=== PATIENT | female | born 1960 | race Caucasian/White ===

== ENCOUNTER → 2016-06-30 | Outpatient (CLI) | payer OTHER ==
[~2016-06-30] MED LIST: CYCL-376 PO; MELO7.5T6 PO; PRLSR20 PO; ROSU5TAB PO
[2016-06-30 15:56] LABS: LYME DISEASE AB IGG NEG (NEG); LYME DISEASE AB IGM NEG (NEG)
== END | disposition home or self-care (01) ==
LOC: C.LAB1850 12:37
PROVIDERS: ATTEND Internal Medicine
DX: Z11.59 Encounter for screening for other viral diseases (principal); G52.1 Disorders of glossopharyngeal nerve

== ENCOUNTER → 2016-08-05 | Outpatient (CLI) | payer OTHER ==
[2016-08-05 12:35] LABS: CHOLESTEROL/HDL RATIO 4.2
== END | disposition home or self-care (01) ==
LOC: C.LAB1850 11:00
PROVIDERS: ATTEND Internal Medicine
DX: E78.5 Hyperlipidemia, unspecified (principal); E55.9 Vitamin D deficiency, unspecified; E53.8 Deficiency of other specified B group vitamins

== ENCOUNTER → 2016-09-08 | Outpatient (CLI) | payer OTHER ==
--- NOTE | 2016-09-09 14:09 | MAMMOGRAPHY REPORT ---
BILATERAL DIGITAL SCREENING MAMMOGRAM TOMOSYNTHESIS WITH CAD: 09/08/2016 CLINICAL HISTORY: Routine screening. Patient has no complaints. TECHNIQUE: Breast tomosynthesis in addition to standard 2D mammography was performed. Current study was also evaluated with a Computer Aided Detection (CAD) system. COMPARISON: Comparison is made to exams dated: 09/05/2015 mammogram, 08/02/2014 mammogram, 06/20/2013 mammogram, 01/15/2012 mammogram, 01/01/2011 mammogram - [facility], and 08/14/2009 [facility]. BREAST COMPOSITION: There are scattered areas of fibroglandular density in both breasts. FINDINGS: There are stable postsurgical and post biopsy changes in the left breast, with a metallic marker remaining in place in the lateral aspect of the breast. No new suspicious mass, architectura l distortion or cluster of microcalcifications is seen. IMPRESSION: ACR BI-RADS CATEGORY 1: NEGATIVE There is no mammographic evidence of malignancy. A 1 year screening mammogram is recommended. The p atient will receive written notification of the results. Approximately 10% of breast cancers are not detected with mammography. A negative mammographic repor t should not delay biopsy if a clinically suggestive mass is present. Ekta Jeffries M.D. ay/:09/08/2016 17:05:06 Knitting Machine Operator: Sunni JIANG)(Nuha), [facility] letter sent: Normal 1/2 BI-RADS Code: ACR BI-RADS Category 1: Negative
== END | disposition home or self-care (01) ==
LOC: C.MAMM 13:21
PROVIDERS: ATTEND Obstetrics & Gynecology
DX: Z12.31 Encounter for screening mammogram for malignant neoplasm of breast (principal)

== ENCOUNTER → 2016-11-12 | Outpatient (CLI) | payer OTHER | END | disposition home or self-care (01) | LOC: C.PAPS 11:03 | PROVIDERS: ATTEND Obstetrics & Gynecology | DX: Z12.4 Encounter for screening for malignant neoplasm of cervix (principal) ==

== ENCOUNTER → 2017-02-05 | Outpatient (CLI) | payer OTHER | END | disposition home or self-care (01) | LOC: C.LAB1850 11:21 | PROVIDERS: ATTEND Internal Medicine | DX: E55.9 Vitamin D deficiency, unspecified (principal); E53.8 Deficiency of other specified B group vitamins ==

== ENCOUNTER → 2017-05-06 | Outpatient (CLI) | payer OTHER ==
--- NOTE | 2017-05-06 14:10 | DIAGNOSTIC IMAGING REPORT ---
CHEST 2 VIEWS ROUTINE CLINICAL HISTORY: CHEST PAIN dyspnea COMPARISON STUDY: 06/20/2013 FINDINGS: The bones soft tissues and hemidiaphragms are normal. The cardiomediastinal silhouette is normal. The lungs are clear. The pulmonary vasculature is normal. IMPRESSION: Negative chest. The above report was generated using voice recognition software. It may contain grammatical, syntax or spelling errors. Electronically signed by: Rao Smith M.D. 05/06/2017 2:09 PM Dictated Date/Time: 05/06/2017 2:08 PM
[2017-05-06 14:40] LABS: HEMATOCRIT 38.5 % (37-47); HEMOGLOBIN 12.7 g/dL (12.0-16.0); MEAN CELL VOLUME 97.7 fL (80-100); MEAN CORPUSCULAR HEMOGLOBIN 32.2 pg (25-34); MEAN PLATELET VOLUME 10.6 fL (7.4-10.4); PLATELET COUNT 264 K/uL (130-400); RED CELL DISTRIBUTION WIDTH CV 13.5 % (11.5-14.5); RED CELL DISTRIBUTION WIDTH SD 48.6 fL (36.4-46.3); WHITE BLOOD COUNT 6.83 K/uL (4.8-10.8)
== END | disposition home or self-care (01) ==
LOC: C.RAD1850 13:36
PROVIDERS: ATTEND Internal Medicine
DX: R07.9 Chest pain, unspecified (principal); D64.9 Anemia, unspecified; E53.8 Deficiency of other specified B group vitamins

== ENCOUNTER → 2017-12-02 | Outpatient (CLI) | payer OTHER ==
--- NOTE | 2017-12-02 11:10 | DIAGNOSTIC IMAGING REPORT ---
THORACIC SPINE 3 VIEWS CLINICAL HISTORY: Thoracic back pain. FINDINGS: AP, lateral, and swimmer's views of the thoracic spine are correlated with lateral chest x-ray dated 05/06/2017. The skeletal structures are osteopenic. There is no radiographic evidence of fracture or malalignment. Vertebral body height and alignment are maintained throughout the thoracic spine. Small anterior osteophytes are seen throughout. The transverse processes and pedicles are intact as seen on the frontal view. Mild multilevel degenerative disc space narrowing is noted with associated degenerative endplate sclerosis. The visualized lung parenchyma appears clear. Cholecystectomy clips are noted in the right upper quadrant. Calcified splenic artery aneurysms are seen in the left upper quadrant. IMPRESSION: 1. No acute bony abnormality is seen in the thoracic spine. 2. Osteopenia and mild spondylotic change as above.. Electronically signed by: Norm Mcclure M.D. 12/02/2017 11:09 AM Dictated Date/Time: 12/02/2017 11:07 AM
== END | disposition home or self-care (01) ==
LOC: C.RAD1850 10:27
PROVIDERS: ATTEND Internal Medicine
DX: M54.6 Pain in thoracic spine (principal); M85.88 Other specified disorders of bone density and structure, other site

== ENCOUNTER 2025-01-25 14:17 | Inpatient (IN) ==
--- NOTE | 2025-01-25 15:14 | Emergency Department Note ---
ED Visit Note I was consulted by the Advanced Practice Provider. I personally made/approved the management plan and take responsibility for the patient management. I performed a substantive portion of the visit. This includes the aspects of: Patient presents with an outpatient MRI showing osteomyelitis of the foot with intramuscular abscesses. Given the findings, given the ongoing pain and discomfort, the patient requires a hospital stay, IV antibiotic therapy and orthopedic/podiatric consult. The hospitalist was consulted. .
[2025-01-25] MEDS ORDERED: CEFEPIME 2000MG 2,000 MG/20 ML SYR IV SCH (15:15)
[2025-01-25] MEDS ORDERED: VANCOMYCIN CONSULT ACTIVE PRN (15:19)
[2025-01-25 15:57] LABS: Hematocrit (blood only) 40.0 % (37.0-47.0); Hemoglobin 13.5 g/dl (12.0-16.0); Immature Granulocytes # (auto) 0.25 K/uL (0.01-0.20); Immature Granulocytes % (auto) 1.6 %; Mean Corpuscular Hemoglobin 32.4 pg (25.0-34.0); Mean Corpuscular Volume 95.9 fL (80.0-100.0); Platelet Count 421 K/uL (130-400); RDW Standard Deviation 44.9 fL (36.4-46.3); Red Blood Count 4.17 M/uL (4.20-5.40); White Blood Count 15.36 K/ul (4.8-10.8)
[2025-01-25] MEDS: cefTRIAXone SODIUM 2,000 MG/50 ML BAG IV STA (16:10)
[2025-01-25 16:14] LABS: Alanine Aminotransferase 19 U/L (7-52); Albumin Globulin Ratio 1.1 (0.9-2); Albumin Level 4.2 gm/dl (3.4-5.0); Alkaline Phosphatase 114 U/L (34-104); Anion Gap 10 (3-11); Bilirubin,Total 0.4 mg/dl (0.2-1.0); Blood Urea Nitrogen 15 mg/dl (6-23); Calcium 9.7 mg/dl (8.6-10.3); Carbon Dioxide 28 mmol/L (21-32); Chloride 100 mmol/L (98-107); Creatinine Clr Calc Pharmacy 77.9 ml/min; Globulin 3.7 gm/dl (2.5-4.0); Glucose 115 mg/dl (70-99(Fasting)); Potassium 3.9 mmol/L (3.5-5.1); Sodium 138 mmol/L (136-145); Total Protein 7.9 gm/dl (6.0-8.3)
[2025-01-25] MEDS: VANCOMYCIN HCL 1,750 MG in SODIUM CHLORIDE 0.9% 500 ML IV ONE (16:43)
--- NOTE | 2025-01-25 16:52 | Emergency Department Note ---
ED Provider Note History of Present Illness Chief Complaint: Foot Injury/Pain Stated Complaint: L FOOT INJURY Time Seen by Provider: 01/25/25 14:38 Source: patient and family Mode of arrival: ambulatory Limitations: no limitations Patient is a 64-year-old female who presents to the emergency department with complaints of left foot pain. Patient was seen here approximately 2 weeks ago for left foot pain and had negative ultrasound and x-rays. Patient was treated for cellulitis due to the redness, swelling and pain that she was experiencing. Patient finished her course of Keflex and was not having much relief of her symptoms and followed up with her primary care physician who has given her 2 different rounds of steroids with minimal relief of her symptoms. Patient then had an outpatient MRI completed that was interpreted to show multiple intramuscular abscesses and osteomyelitis at the first metacarpal. Patient was sent in for further evaluation and admission by her primary care physician. Home Medications Medication Instructions Recorded Confirmed Type cyclobenzaprine 10 mg tablet 5 - 10 mg PO UD PRN muscle spasms 08/27/23 01/25/25 History mecobalamin (vitamin B12) See Rx Instructions .Route .COMPLEX 09/13/23 01/25/25 History celecoxib 200 mg capsule (Celebrex) 200 mg PO DAILY PRN pain #30 caps 08/07/24 01/25/25 Rx lorazepam 0.5 mg tablet 0.5 mg PO DAILY PRN anxiety #30 10/02/24 01/25/25 Rx tabs mupirocin 2 % topical ointment 1 applic topical BID PRN dryness 10/02/24 01/25/25 Rx in nose, mainly in winter #22 grams cholecalciferol (vitamin D3) 1,250 50,000 unit PO WK #12 caps 10/04/24 01/25/25 Rx mcg (50,000 unit) capsule cholecalciferol (vitamin D3) 25 75 mcg PO QPM 12/01/24 01/25/25 History mcg (1,000 unit) tablet (Vitamin D3) oxycodone 5 mg tablet 5 mg PO Q8H PRN pain #15 tabs 01/16/25 01/25/25 Rx prednisone 10 mg tablet See Rx Instructions .Route 01/23/25 01/25/25 Rx .COMPLEX #30 tabs Allergies Allergy/AdvReac Type Severity Reaction Status Date / Time gabapentin [From Neurontin] Allergy Intermediate Rash Verified 01/17/25 13:05 atorvastatin AdvReac Severe leg Verified 01/17/25 13:05 crampings chlorhexidine AdvReac Severe Rash Verified 01/17/25 13:05 codeine AdvReac Mild NAUSEA Verified 01/17/25 13:05 amoxicillin AdvReac Unknown NAUSEA/DIAR Verified 01/17/25 13:05 NAYANA clavulanic acid AdvReac Unknown NAUSEA/DIAR Verified 01/17/25 13:05 NAYANA Past Med/Surg History Problem List (Updated 01/27/25 @ 16:01 by EVERARDO Guerrero) Osteomyelitis (Acute) Elevated lactic acid level Foot osteomyelitis, left Gout Swelling of left foot Left foot pain Acute joint pain Swelling (Acute) Acute foot pain (Acute) Cellulitis (Acute) LLQ pain Colitis Left shoulder pain Metallic taste At increased risk of breast cancer TC score 43% lifetime risk Leg cramps Skin lesions Health care maintenance Cervical stenosis (uterine cervix) Right knee pain still has pain 2/2 to "bad" knee replacement Family history of breast cancer in first degree relative Daughter age 37 Pt TC score <20% lifetime risk Hyperglycemia Splenic artery aneurysm FH: CAD (coronary artery disease) Mild dysplasia of cervix (DANNY I) Anxiety (Acute) Arthralgia of multiple sites (Acute) Glossopharyngeal neuralgia (Acute) Hyperlipidemia (Acute) Internal hemorrhoids (Acute) Liver hemangioma (Acute) Nasal septal perforation (Acute) Vitamin B12 deficiency (Acute) Vitamin D deficiency disease (Acute) Medical History ASCUS of cervix with negative high risk HPV hx Thoracic spine pain "occasional" Coronary artery calcification seen on CT scan Right knee pain still has pain 2/2 to "bad" knee replacement Nasal septal perforation Splenic artery aneurysm x3, being monitored Per 08/19/23 abdomen/pelvis CT- ". 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 History of tonsillectomy History of corneal transplant Left eye, s/t accident History of cholecystectomy History of arthroscopy LT KNEE Family History Mother , at 92 years of age from Alzheimer's dementia; patient's mother also was diagnosed with cervical carcinoma and lung carcinoma earlier in her life with underlying tobacco abuse, but the proximal cause of patient's mother's was Alzheimer's dementia at 92 years of age. Alzheimer disease Cervical cancer Lung cancer ASCVD (arteriosclerotic cardiovascular disease) Father , at 58 years of age from esophageal carcinoma in the setting of tobacco abuse, but no COPD, and not on home oxygen or home steroids. Esophageal cancer Daughter Asthma Breast cancer Brother Heart disease ASCVD (arteriosclerotic cardiovascular disease) Sister Heart disease Social History Smoking Status: Never smoker Second Hand Exposure: Yes (hx- smoked 40 years ago); Do You Dip or Chew Tobacco: No; Hx Alcohol Use: No Hx Substance Use: No Preferred Language: Honduran Communication Ability: Effective Visual Impairment: Partially Limited Or Rn Required: No Beliefs That Will Affect Care: None marital status: marital status details: Visits and helps raise grandchildren of her 6 daughters and 4 sons. Current Living Situation: Spouse Current Living Situation Comment: Lives with in their own home. 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 How many Children do You have: 9 Feels Safe at Home: Yes Childhood Exposure to Second-Hand Smoke: Yes Dental Care, Regularly: Yes Physical Activity Frequency: 3-4 Times per Week Seatbelt Use: always Sunscreen Use: Yes Assistive Devices: Walker Physical Exam Vital Signs Vital Signs - 24 hr 01/25/25 14:30 01/25/25 16:20 10/16/25 16:24 Temperature 36.6 C Temperature Source Oral Pulse Rate 80 80 Pulse Rate [Apical] 82 Pulse Rhythm [Apical] Regular Pulse Strength [Apical] Normal Respiratory Rate 16 23 Respiratory Effort / Characteristics Non-Labored Spontaneous Respiratory Depth Normal Respiratory Pattern Regular Blood Pressure 142/90 H Blood Pressure [Right Arm] 117/84 Blood Pressure Mean 107 Blood Pressure Mean [Right Arm] 95 Blood Pressure Position [Right Arm] Lying Pulse Oximetry 96 95 Oxygen Delivery Method Room Air Room Air Sepsis Recent Fever Within 48 Hours No Sepsis New/Unexplained Change in Mental Status No Sepsis Action Taken by Nursing No Action Required Physical Exam: VITAL SIGNS - Vital signs and nursing notes were reviewed. GENERAL -64-year-old female appearing her stated age and in noticeable discomfort throughout the exam. Patient's is at bedside. MUSCULOSKELETAL -patient's left foot presents with some mild erythema, mild edema no evidence of ecchymosis. Patient has moderate discomfort around the area of the first metacarpal. Patient is unable to bear weight due to the significant pain that she is experiencing with weightbearing. NEUROLOGIC/VASCULAR - Neurovascularly intact distally with +3/5 dorsalis pedis pulses palpated bilaterally. Intact sensation to light and sharp touch appreciated distally. Course Administered Medications Acetaminophen (Acetaminophen 325 Mg Tab) 650 mg PO Q6 PRN PRN Reason: pain 1 to 3;MCKEON;T>100.4F Stop: 02/24/25 16:58 Last Admin: 01/26/25 05:58 Dose: 650 mg Documented By: HERMAN Heparin Sodium (Porcine) (Heparin Sod 5,000 Unit/0.5 Ml Vial) 5,000 units SQ Q8 ALEXANDER Stop: 02/24/25 21:59 Last Admin: 01/27/25 13:16 Dose: Not Given Documented By: Admin: 01/27/25 05:56 Dose: Not Given Documented By: cydney Admin: 01/26/25 21:33 Dose: Not Given Documented By: cydney Admin: 01/26/25 14:02 Dose: Not Given Documented By: Admin: 01/26/25 05:45 Dose: 5,000 units Documented By: Admin: 01/25/25 22:16 Dose: 5,000 units Documented By: HERMAN Cefepime HCl (Maxipime 2000mg) 2,000 mg in 20 mls @ 5 mls/min IV Q8H [facility]; Protocol Stop: 03/09/25 01:59 Last Admin: 01/27/25 11:00 Dose: 5 mls/min Documented By: Admin: 01/27/25 01:38 Dose: 5 mls/min Documented By: cydney Admin: 01/26/25 18:50 Dose: 5 mls/min Documented By: Admin: 01/26/25 09:56 Dose: 5 mls/min Documented By: LA NENA Admin: 01/26/25 01:57 Dose: 5 mls/min Documented By: HERMAN Vancomycin HCl 1,250 mg/ (Sodium Chloride) 275 mls @ 200 mls/hr IV Q12H [facility] Stop: 03/08/25 15:59 Last Infusion: 01/27/25 05:35 Dose: Infused Documented By: cydney Admin: 01/27/25 04:09 Dose: 200 mls/hr Documented By: cydney Infusion: 01/26/25 17:43 Dose: Infused Documented By: Admin: 01/26/25 16:09 Dose: 200 mls/hr Documented By: GABRIELLE Morphine Sulfate (Morphine Sulfate 4 Mg/Ml 1 Ml Carp\\Vial) 2 mg IV Q2H PRN PRN Reason: Pain rated 4 to 10 Stop: 02/08/25 17:09 Last Admin: 01/26/25 21:38 Dose: 2 mg Documented By: cydney Discontinued Medications Gadobutrol (Gadobutrol 65ml Vial) 7 ml IV ONCE ONE Stop: 01/25/25 21:01 Last Admin: 01/25/25 21:00 Dose: 7 ml Documented By: YARA Vancomycin HCl 1,750 mg/ (Sodium Chloride) 535 mls @ 200 mls/hr IV NOW ONE Stop: 01/25/25 17:59 Last Infusion: 01/25/25 19:24 Dose: Infused Documented By: Admin: 01/25/25 16:43 Dose: 200 mls/hr Documented By: VINI Ceftriaxone Sodium (Rocephin) 2,000 mg in 50 mls @ 100 mls/hr IV NOW STA Stop: 01/25/25 15:48 Last Infusion: 01/25/25 16:40 Dose: Infused Documented By: Admin: 01/25/25 16:10 Dose: 100 mls/hr Documented By: VINI Cefepime HCl (Maxipime 2000mg) 2,000 mg in 20 mls @ 5 mls/min IV TODAY@1715 ALEXANDER; Protocol Stop: 01/25/25 18:30 Last Admin: 01/25/25 18:03 Dose: 5 mls/min Documented By: VINI Vancomycin HCl (Vancomycin Hcl / Nss) 1,000 mg in 270 mls @ 200 mls/hr IV Q12H [facility]ER Stop: 03/09/25 03:59 Last Infusion: 01/26/25 05:35 Dose: Infused Documented By: Admin: 01/26/25 04:10 Dose: 200 mls/hr Documented By: HERMAN Sodium Chloride (Nss) 1,000 mls @ 72 mls/hr IV .[id number] ONE Stop: 01/26/25 10:11 Last Infusion: 01/26/25 12:08 Dose: Infused Documented By: LA NENA Admin: 01/25/25 22:10 Dose: 72 mls/hr Documented By: HERMAN Medical Decision Making Differential Diagnosis Fracture, dislocation, cellulitis, osteomyelitis, among others Medical Records Attestation: I reviewed the patient's medical records. Home Medications was personally reviewed by me Laboratory Data Attestation: I reviewed the patient's lab results. 01/27/25 06:57 01/27/25 06:57 Lab Results 01/25/25 01/25/25 Range/Units 15:34 16:06 WBC 15.36 H (4.8-10.8) K/ul RBC 4.17 L (4.20-5.40) M/uL Hgb 13.5 (12.0-16.0) g/dl Hct 40.0 (37.0-47.0) % MCV 95.9 (80.0-100.0) fL MCH 32.4 (25.0-34.0) pg MCHC 33.8 (32.0-36.0) g/dL RDW Std Deviation 44.9 (36.4-46.3) fL RDW Coeff of Patel 12.7 (11.5-14.5) % Plt Count 421 H (130-400) K/uL MPV 9.6 (9.4-12.4) fL Immature Gran % (Auto) 1.6 % Neut % (Auto) 86.8 % Lymph % (Auto) 8.6 % Aiken % (Auto) 2.4 % Eos % (Auto) 0.1 % Baso % (Auto) 0.5 % Neut # (Auto) 13.33 H (1.40-6.50) K/uL Lymph # (Auto) 1.32 (1.20-3.40) K/uL Aiken # (Auto) 0.37 (0.11-0.59) K/uL Eos # (Auto) 0.02 (0.00-0.50) K/uL Baso # (Auto) 0.07 (0.00-0.20) K/uL Immature Gran # (Auto) 0.25 H (0.01-0.20) K/uL ESR 44 H (0-30) mm/hr Sodium 138 (136-145) mmol/L Potassium 3.9 (3.5-5.1) mmol/L Chloride 100 (98-107) mmol/L Carbon Dioxide 28 (21-32) mmol/L Anion Gap 10 (3-11) BUN 15 (6-23) mg/dl Creatinine 0.70 (0.6-1.2) mg/dl Est Cr Clr Drug Dosing 77.9 ml/min eGFR 95.92 BUN/Creatinine Ratio 21.4 H (10-20) Glucose 115 H (70-99(Fasting)) mg/dl Lactate 1.6 (0.4-2.0) mmol/L Calcium 9.7 (8.6-10.3) mg/dl Total Bilirubin 0.4 (0.2-1.0) mg/dl AST 14 (13-39) U/L ALT 19 (7-52) U/L Alkaline Phosphatase 114 H (34-104) U/L C-Reactive Protein < 0.50 (0-0.5) mg/dl Total Protein 7.9 (6.0-8.3) gm/dl Albumin 4.2 (3.4-5.0) gm/dl Globulin 3.7 (2.5-4.0) gm/dl Albumin/Globulin Ratio 1.1 (0.9-2) Procalcitonin < 0.02 (0-0.5) ng/ml MDM Narrative Patient is a 64-year-old female who presents to the emergency department with complaints of left foot pain. Patient was seen here approximately 2 weeks ago for left foot pain and had negative ultrasound and x-rays. Patient was treated for cellulitis due to the redness, swelling and pain that she was experiencing. Patient finished her course of Keflex and was not having much relief of her symptoms and followed up with her primary care physician who has given her 2 different rounds of steroids with minimal relief of her symptoms. Patient then had an outpatient MRI completed that was interpreted to show multiple intramuscular abscesses and osteomyelitis at the first metacarpal. Patient was sent in for further evaluation and admission by her primary care physician. Patient was evaluated by myself and findings were noted in the physical exam above. Patient was ordered IV placement, lab work that included a CBC, CMP, sed rate, and lactate. Patient was also ordered blood cultures and IV Rocephin and vancomycin. Patient's lab work resulted with an elevated white blood cell count of 15.36. Patient had no significant electrolyte imbalance noted. Patient sed rate was elevated at 44. Patient did not have any further imaging here in the emergency department as her MRI did indicate the multiple abscesses and osteomyelitis. I discussed with the patient that because of the findings on the MRI and her lab work that it was the most reasonable and advisable plan moving forward to have her admitted to the hospital for IV antibiotics and further evaluation and management. Patient verbalized understanding and was agreeable to this plan. I spoke with one of the residents with the [facility] hospitalist group, Alexis Spain and gave him a full report on the patient's chief complaint, current status and the results of her imaging at 611 MRI. Alexis verbalized understanding and was agreeable to admitting the patient under Dr. Bessie Stanton's service. Please refer to the [facility] documentation for further evaluation and management of this patient. Impression Osteomyelitis Discharge Plan Visit Data Chief Complaint: Foot Injury/Pain Stated Complaint: L FOOT INJURY ED Provider: Norm Moreno ED Midlevel Provider: Kirsty Ayala Discharge Problem: Osteomyelitis Patient Disposition: Admitted As Inpatient Condition: Fair Discharge Instructions Interventions: ED Discharge Assessment Last Done: 01/25/25 20:38 ED DC CONDITION Conditon at Discharge Condition at Discharge: Fair Discharge Problem: Osteomyelitis Qualifiers: Osteomyelitis type: acute hematogenous Osteomyelitis location: foot Laterality: left Qualified Code(s): M86.072 - Acute hematogenous osteomyelitis, left ankle and foot
[2025-01-25] MEDS ORDERED: LORazepam 0.5 MG TAB PO PRN (17:06)
--- NOTE | 2025-01-25 17:47 | Pharmacy Report ---
Pharmacy PK ABX Note - Date of Service January 25, 2025 - Assessment and Plan Assessment * 64 year old F receiving cefepime and vancomycin for treatment of osteomyelitis * Recent outpatient cephalexin * Pertinent microbiologic data includes: blood cultures pending * SCr is at/near baseline Plan Vancomycin * Loading dose: 1750 mg IV x 1 * Maintenance dose: 1000 mg IV every 12 hours * Target AUC/LILIA of 400-600 mg/L.hr * Random level ordered for 01/26 @ 1200 Pharmacy will continue to follow and will adjust dose/frequency as necessary. Thank you. Pharmacy has transitioned to AUC monitoring for vancomycin. AUC/LILIA is the preferred PK/PD target and is associated with decreased risk of nephrotoxicity compared to traditional trough targets.
[2025-01-25] MEDS: CEFEPIME 2000MG 2,000 MG/20 ML SYR IV SCH (18:03)
--- NOTE | 2025-01-25 20:03 | History & Physical Report ---
Date of Service January 25, 2025 History of Present Illness Chief Complaint: In the patient's own words: " 1. On January 09, 2025, 11:00am, I felt my left foot start to swell up as I noticed that my shoe was feeling tight against my left foot. 2. On January 09, 2025, 11:30am, I could not put any weight on my left foot as the pain was terrible and constant, sharp and stabbing, more than a 10 (out of 10 point intensity scale) and which prevented me from going to sleep that night. 3. On January 10, 2025, 9:00am, I went to see Orthopedic Surgeon Dr. Hardik Hernandez of [facility] and he said I had gout, so he prescribed for me a solumedrol dose pack and that did nothing for me. 4. On January 11, 2025, 10:00am, I had a video conference with my PCP Dr. Batsheva Harman's nurse practitioner, Ms. Fide Rios, and she advised that I keep taking the solumedrol dose pack, and prescribed NO antibiotics. I didn't get better. 5. On January 13, 2025, 4:00pm, I went to [facility], and Ms. Kirsty Ayala, EVERARDO, said I had cellulitis of my left foot, and so she prescribed keflex 500mg PO q6 x 7 days, #28 capsules, and I took all 28 capsules. Ms. Ayala also prescribed oxycodone 5mg PO q8 prn pain, #10 tabs, and a solumedrol dose pack, #21 tablets, and the oxycodone reduced the pain and the solumedrol brought the swelling down a little in my left foot, but my left foot was still very red and turned an ugly purple at times, so the infection in my left foot had not gone away completely. 6. On January 17, 2025, 9:00am, I went to see my PCP Dr. Batsheva Harman, and she was convinced I had gout, and not a foot infection, so she prescribed prednisone 40mg PO daily, #10 tablets, and prescribed NO antibiotics. The swelling and the pain went down a lot, but once again, my left foot was still very red and turned an ugly purple at times, so the infection in my left foot was still there. 7. On January 20, 2025, 9:03am, I went to [facility] ([facility], [place] [address]) and I got a MRI of my left foot without IV contrast. This is the report I got from [facility]: 1. Moderate diffuse edema in the medial cuneiform and the base/shaft of the first metatarsal bone (series 901, image 15). Moderate edema with intramuscular collections within the adjacent flexor hallucis brevis and adductor hallucis (series 701, image 12). This is of concern for intramuscular abscesses with osteomyelitis. 2. Mild subchondral edema in the second and third tarsometatarsal joints. (as per Radiologist Dr. Liza Cross, 01/24/2025, 2:27pm). 8. For the past two weeks, I have noticed that the sole of my left foot has been pealing off skin. There was never any blister(s) on the sole of my left foot. There was never any open wound on any part of my left leg where the redness and swelling was and still remains today, 01/25/2025. What is causing my skin to peal off from the sole of my left foot, doc? 9. I should let you know that 3 weeks before January 09, 2025, I went to a nail salon that I had not been to before for a while, but it was the closest one to me, so I went to the nail salon and got a pedicure where they trimmed my nails, pushed up my cuticles, and made my nails look great. I felt fine during and after the pedicure. You don't think that pedicure had anything to do with my left foot getting infected, do you? 10.I should also let you know that on December 07, 2024, 10:45pm, I went and had a colonoscopy done by GI Dr. Anmol Han, here at [facility]. He told me that I had 2 small cecal polyps that he removed, along with some diverticulosis in my sigmoid colon, and some non-bleeding internal hemorrhoids, and sent me home that same day. 2 days later, I was diagnosed with an acute UTI (cf., review of patient's medical chart reveals 12/18/2024 urine culture bengali elding 60,000 cfu/mL Streptococcus anginosus) and I got a prescription for keflex that I took for 3-4 times a day for 7 days. 3 days later, I was diagnosed with acute colitis (cf., review of patient's medical chart reveals 12/18/2024 CT abd/pelvis with IV/oral contrast reportin. Abnormal mural thickening with mild surrounding inflammation in the distal descending and sigmoid colon consistent with active colitis. No bowel obstruction or free air seen at this time. Follow-up with colonoscopy if further definitive diagnosis is recommended. 2. Stable multiple splenic artery aneurysm with the largest being 1.9 cm. 3. Stable biliary tree dilatation status post cholecystectomy. I got a prescription for levofloxacin 750mg PO daily for 7 days, and I felt better after that. You don't think that the colonoscopy had anything to do with my left foot getting infected, do you?" Primary Care Provider: Macario Rodgers MD 64 years old female with PMH of FULL CODE @ home, anxiety disorder on lorazepam 0.5mg PO daily prn anxiety, hyperlipidemia, no longer on atorvastatin as it caused leg cramps, osteoarthritis, s/p right total knee arthroplasty (02/04/2018, [facility], Orthopedic Surgeon Dr. Juan A hull), complicated by acute right peroneal DVT (02/05/2018, 5:12pm, [facility] venous doppler), who reports: In the patient's own words: " 1. On January 09, 2025, 11:00am, I felt my left foot start to swell up as I noticed that my shoe was feeling tight against my left foot. 2. On January 09, 2025, 11:30am, I could not put any weight on my left foot as the pain was terrible and constant, sharp and stabbing, more than a 10 (out of 10 point intensity scale) and which prevented me from going to sleep that night. 3. On January 10, 2025, 9:00am, I went to see Orthopedic Surgeon Dr. Hardik Hernandez of [facility] and he said I had gout, so he prescribed for me a solumedrol dose pack and that did nothing for me. 4. On January 11, 2025, 10:00am, I had a video conference with my PCP Dr. Batsheva Harman's nurse practitioner, Ian Fide Rios, and she advised that I keep taking the solumedrol dose pack, and prescribed NO antibiotics. I didn't get better. 5. On January 13, 2025, 4:00pm, I went to [facility], and Ms. Kirsty Ayala, EVERARDO, said I had cellulitis of my left foot, and so she prescribed keflex 500mg PO q6 x 7 days, #28 capsules, and I took all 28 capsules. Ms. Ayala also prescribed oxycodone 5mg PO q8 prn pain, #10 tabs, and a solumedrol dose pack, #21 tablets, and the oxycodone reduced the pain and the solumedrol brought the swelling down a little in my left foot, but my left foot was still very red and turned an ugly purple at times, so the infection in my left foot had not gone away completely. 6. On January 17, 2025, 9:00am, I went to see my PCP Dr. Batsheva Harman, and she was convinced I had gout, and not a foot infection, so she prescribed prednisone 40mg PO daily, #10 tablets, and prescribed NO antibiotics. The swelling and the pain went down a lot, but once again, my left foot was still very red and turned an ugly purple at times, so the infection in my left foot was still there. 7. On January 20, 2025, 9:03am, I went to [facility] ([address] [place] [address]) and I got a MRI of my left foot without IV contrast. This is the report I got from [facility]: 1. Moderate diffuse edema in the medial cuneiform and the base/shaft of the first metatarsal bone (series 901, image 15). Moderate edema with intramuscular collections within the adjacent flexor hallucis brevis and adductor hallucis (series 701, image 12). This is of concern for intramuscular abscesses with osteomyelitis. 2. Mild subchondral edema in the second and third tarsometatarsal joints. (as per Radiologist Dr. Liza Cross, 01/24/2025, 2:27pm). 8. For the past two weeks, I have noticed that the sole of my left foot has been pealing off skin. There was never any blister(s) on the sole of my left foot. There was never any open wound on any part of my left leg where the redness and swelling was and still remains today, 01/25/2025. What is causing my skin to peal off from the sole of my left foot, doc? 9. I should let you know that 3 weeks before January 09, 2025, I went to a nail salon that I had not been to before for a while, but it was the closest one to me, so I went to the nail salon and got a pedicure where they trimmed my nails, pushed up my cuticles, and made my nails look great. I felt fine during and after the pedicure. You don't think that pedicure had anything to do with my left foot getting infected, do you? 10.I should also let you know that on December 07, 2024, 10:45pm, I went and had a colonoscopy done by GI Dr. Anmol Han, here at [facility]. He told me that I had 2 small cecal polyps that he removed, along with some diverticulosis in my sigmoid colon, and some non-bleeding internal hemorrhoids, and sent me home that same day. 2 days later, I was diagnosed with an acute UTI (cf., review of patient's medical chart reveals 12/18/2024 urine culture yielding 60,000 cfu/mL Streptococcus anginosus) and I got a prescription for keflex that I took for 3-4 times a day for 7 days. 3 days later, I was diagnosed with acute colitis (cf., review of patient's medical chart reveals 12/18/2024 CT abd/pelvis with IV/oral contrast reportin. Abnormal mural thickening with mild surrounding inflammation in the distal descending and sigmoid colon consistent with active colitis. No bowel obstr uction or free air seen at this time. Follow-up with colonoscopy if further definitive diagnosis is recommended. 2. Stable multiple splenic artery aneurysm with the largest being 1.9 cm. 3. Stable biliary tree dilatation status post cholecystectomy. I got a prescription for levofloxacin 750mg PO daily for 7 days, and I felt better after that. You don't think that the colonoscopy had anything to do with my left foot getting infected, do you?" Patient denies antecedent/coincident fevers, chills, diaphoresis, cough, wheeze, sore throat, hemoptysis, pleurisy, SOB/SANDOVAL, nausea, vomiting, diarrhea, abdominal pain, abdominal pain, pelvic pain, hematemesis, hematochezia, melena, hematuria, dysuria, frequency, urgency, headaches, dizziness, lightheadedness, visual changes, hearing changes, weakness, falls, syncope, trauma, travel history, sick contacts, food/drug ingestions novel or new, or enanthem. All other review of systems are reported as negative by the patient on admission date 01/25/2025. In [facility] ER bed #C6, patient was afebrile @ 36.6 degrees Celsius, HR 80, RR 23, O2 sat 95% on room air, and BP 117/84 (01/24/2025, 4:20pm). Exam was noted for light purplish discoloration to the dorsum of left foot, sparing the left medial malleolus, the left lateral malleolus, and the left toes #1, #2, #3, #4, and #5 (which were edematous nonetheless). In addition, the dorsum of the left foot was warm, indurated, and mildly tender without crepitus, fluctuance, discharge (sanguineous, serous, suppurative), ulceration, malodor, or lymphangitic streaking. In addition, the sole of the left foot (sparing the calcaneal sole and mid-sole) and the plantar surface of the left hallux, the left 3rd, 4th, and 5th toes were noted for discrete areas of desquamation. Labs in [facility] ER bed #C6 included: WBC 15.36, N87 L9 M2 B1, Hb 13.5, MCV 95.9, MCHC 33.8, platelet 421 (01/25/2025, 3:34pm). ESR 44 mm/hr, CRP (01/25/2025, 3:34pm). Lactic acid #1 1.6 mmol/L (01/25/2025, 3:34pm). Lactic acid #2 2.3 mmol/L (01/25/2025, 5:27pm). Lactic acid #3 (01/25/2025, 9:27pm). Lactic acid #4 (01/26/2025, 4:44am). Procalcitonin #1 < 0.02 ng/mL (01/25/2025, 3:34pm). Procalcitonin #2 (01/26/2025, 4:44am). Blood culture #1 (01/25/2025, 3:34pm): Blood culture #2 (01/25/2025, 4:06pm): Na 138, K 3.9, BUN 15, creatinine 0.70, glucose 115, anion gap 10, CO2 28, Ca 9.7, AST 14, ALT 19, ALK PHOS 114, total bili 0.4 (01/25/2025, 3:34pm). Additional testing in [facility] ER bed #C6 included: MRI left foot with/without IV contrast (01/25/2025, 7:24pm): (rule out acute left foot osteomyelitis, rule out acute left foot abscess(es)). Patient was subsequently admitted to the inpatient hospitalist service @ [facility] on 01/25/2025 with the following diagnoses: 1. R/O acute left foot osteomyelitis, R/O acute left foot abscess(es), R/O streptococcal/staphylococcal bacteremia. 2. Acute lactic acid elevation with lactic acid #2 2.3 mmol/L (01/25/2025, 5:27pm). To address #1, patient received ceftriaxone 2g IV x 1 dose (01/25/2025, 4:10pm) and vancomycin 1.75g IV x 1 dose (01/25/2025, 4:43pm) in [facility] ER bed #C6. Patient subsequently received cefepime 2g IV x 1 dose (01/25/2025, 6:03pm) to provide pseudomonal coverage not inherent to ceftriaxo ne, given involvement of this non-diabetic patient's left foot and given ubiquitous pseudomonal predilection for soil and water. Patient subsequently will continue with cefepime 2g IV q8 (day # on 01/26/2025, 2:03am) and vancomycin 1g IV q12 (day # on 01/26/2025, 4:43am) as I check repeat vitals, left foot exam, WBC w/diff, ESR, CRP, blood culture #1 (01/25/2025, 3:34pm), blood culture #2 (01/25/2025, 4:06pm), and MRI left foot with/without IV contrast (01/25/2025, 7:24pm) in the 01/26/2025 am. To address #2, patient was started on empiric antibiotics as described in bullet #1 above, as the etiology of acute lactic acid elevation is most likely due to acute left foot cellulitis, if not acute left foot osteomyelitis and/or acute left foot abscess(es); in addition, patient was started on 1 liter of 0.9% NS @ 72 mL/hr (01/25/2025, 8:18pm), based on a delivery rate of 1 mL of 0.9% NS per kg of body weight per hour, and a body weight of 71.6 kg, as another etiology of acute lactic acid elevation is most likely due to acute dehydration in the infected state. I will check repeat lactic acid #3 (01/25/2025, 9:27pm) and repeat lactic acid #4 (01/26/2025, 4:44am). Allergies Allergy/AdvReac Type Severity Reaction Status Date / Time gabapentin [From Neurontin] Allergy Intermediate Rash Verified 01/17/25 13:05 atorvastatin AdvReac Severe leg Verified 01/17/25 13:05 crampings chlorhexidine AdvReac Severe Rash Verified 01/17/25 13:05 codeine AdvReac Mild NAUSEA Verified 01/17/25 13:05 amoxicillin AdvReac Unknown NAUSEA/DIAR Verified 01/17/25 13:05 NAYANA clavulanic acid AdvReac Unknown NAUSEA/DIAR Verified 01/17/25 13:05 NAYANA Home Medications Medication Instructions Recorded Confirmed Type cyclobenzaprine 10 mg tablet 5 - 10 mg PO UD PRN muscle spasms 08/27/23 01/25/25 History mecobalamin (vitamin B12) See Rx Instructions .Route .COMPLEX 09/13/23 01/25/25 History celecoxib 200 mg capsule (Celebrex) 200 mg PO DAILY PRN pain #30 caps 08/07/24 01/25/25 Rx lorazepam 0.5 mg tablet 0.5 mg PO DAILY PRN anxiety #30 10/02/24 01/25/25 Rx tabs mupirocin 2 % topical ointment 1 applic topical BID PRN dryness 10/02/24 01/25/25 Rx in nose, mainly in winter #22 grams cholecalciferol (vitamin D3) 1,250 50,000 unit PO WK #12 caps 10/04/24 01/25/25 Rx mcg (50,000 unit) capsule cholecalciferol (vitamin D3) 25 75 mcg PO QPM 12/01/24 01/25/25 History mcg (1,000 unit) tablet (Vitamin D3) oxycodone 5 mg tablet 5 mg PO Q8H PRN pain #15 tabs 01/16/25 01/25/25 Rx prednisone 10 mg tablet See Rx Instructions .Route 01/23/25 01/25/25 Rx .COMPLEX #30 tabs Past Med/Surg History Problem List Gout Swelling of left foot Left foot pain Acute joint pain Swelling (Acute) Acute foot pain (Acute) Cellulitis (Acute) LLQ pain Colitis Left shoulder pain Metallic taste At increased risk of breast cancer TC score 43% lifetime risk Leg cramps Skin lesions Health care maintenance Cervical stenosis (uterine cervix) Right knee pain still has pain 2/2 to "bad" knee replacement Family history of breast cancer in first degree relative Daughter age 37 Pt TC score <20% lifetime risk Hyperglycemia Splenic artery aneurysm FH: CAD (coronary artery disease) Mild dysplasia of cervix (DANNY I) Anxiety (Acute) Arthralgia of multiple sites (Acute) Glossopharyngeal neuralgia (Acute) Hyperlipidemia (Acute) Internal hemorrhoids (Acute) Liver hemangioma (Acute) Nasal septal perforation (Acute) Vitamin B12 deficiency (Acute) Vitamin D deficiency disease (Acute) Medical History ASCUS of cervix with negative high risk HPV hx Thoracic spine pain "occasional" Coronary artery calcification seen on CT scan Right knee pain still has pain 2/2 to "bad" knee replacement Nasal septal perforation Splenic artery aneurysm x3, being monitored Per 08/19/23 abdomen/pelvis CT- ". 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 History of tonsillectomy History of corneal transplant Left eye, s/t accident History of cholecystectomy History of arthroscopy LT KNEE Family History (Updated 01/25/25 @ 20:32 by Rich Spain MD, PhD) Mother , at 92 years of age from Alzheimer's dementia; patient's mother also was diagnosed with cervical carcinoma and lung carcinoma earlier in her life with underlying tobacco abuse, but the proximal cause of patient's mother's was Alzheimer's dementia at 92 years of age. Alzheimer disease Cervical cancer Lung cancer ASCVD (arteriosclerotic cardiovascular disease) Father , at 58 years of age from esophageal carcinoma in the setting of tobacco abuse, but no COPD, and not on home oxygen or home steroids. Esophageal cancer Daughter Asthma Breast cancer Brother Heart disease ASCVD (arteriosclerotic cardiovascular disease) Sister Heart disease Social History (Updated 01/25/25 @ 20:34 by Rich Spain MD, PhD) Smoking Status: Never smoker Second Hand Exposure: Yes (hx- smoked 40 years ago); Do You Dip or Chew Tobacco: No; Hx Alcohol Use: Yes Alcohol type: wine Hx Substance Use: No Preferred Language: Turkish Communication Ability: Effective Visual Impairment: Partially Limited [employer]ing Teacher Required: No Beliefs That Will Affect Care: None marital status: marital status details: Visits and helps raise grandchildren of her 6 daughters and 4 sons. Current Living Situation: Spouse and Family Current Living Situation Comment: Lives with in their own home. 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 How many Children do You have: 9 Feels Safe at Home: Yes Childhood Exposure to Second-Hand Smoke: Yes Dental Care, Regularly: Yes Physical Activity Frequency: 3-4 Times per Week Seatbelt Use: always Sunscreen Use: Yes Assistive Devices: None and Glasses Results & Data Results & Data Vital Signs (Past 12 Hours) Vital Signs Temp Pulse Pulse Resp BP BP Pulse Ox 01/25/25 16:59 78 19 117/77 98 01/25/25 16:24 80 01/25/25 16:20 82 23 117/84 95 01/25/25 14:30 36.6 C 80 16 142/90 H 96 O2 Del Method 01/25/25 16:59 Room Air 01/25/25 16:24 01/25/25 16:20 Room Air 01/25/25 14:30 Room Air Code Status & VTE Plan VTE Prophylaxis Plan VTE Prophylaxis will be ordered: Yes PG Care Time/CCT Total # of Minutes Spent Total Time Spent with Patient: Total time spent is greater than 50% in coordination of care (as documented) at patient's floor/unit and/or counseling patient: Coding Level of Care Code 84563 INT INP/OBS CARE 2/55MIN
[2025-01-25] MEDS: GADOBUTROL 65ML VIAL IV ONE (21:00)
--- NOTE | 2025-01-25 21:34 | Magnetic Resonance Report ---
Exam(s): MRI LEFT FOOT W/WO Contrast IV Amt: 7 gilberto EXAM: MR Left Lower Extremity Without and With Intravenous Contrast, Foot CLINICAL HISTORY: Reason for exam: L foot abscesses/osteomyelitis;R/O nec fasciitis. TECHNIQUE: Multiplanar magnetic resonance images of the left foot without and with intravenous contrast. CONTRAST: Patient received 7 gilberto of IV contrast COMPARISON: No relevant prior studies available. FINDINGS: There is a joint effusion of the 1st tarsometatarsal joint with T2 hyperintense, T1 hypointense bone marrow signal abnormality in the 1st cuneiform in the 1st metatarsal base. There is corresponding postcontrast marrow enhancement and joint capsule enhancement. There is a contiguous rim enhancing 7 x 3 x 10 mm collection within the plantar musculature along the lateral aspect of the peroneus longus tendon (series 12, image 33; series 13, image 16). More mild marrow signal changes and marrow enhancement are also noted at tarsometatarsal joints 2-4. There is a background of polyarticular midfoot degenerative change. Bone marrow signal within the foot is otherwise normal. There is no acute fracture or dislocation. There is osteoarthritis of the 1st MTP joint. There is no evidence of soft tissue abscess on postcontrast imaging. IMPRESSION: Joint effusion of the 1st tarsometatarsal joint with bone marrow signal abnormality and enhancement in the 1st cuneiform and 1st metatarsal base, raising concern for septic joint and osteomyelitis. Along the plantar aspect of the joint space there is a 10 mm rim enhancing collection concerning for a soft tissue abscess, abutting the lateral margin of the peroneus longus tendon. More mild signal changes and enhancement are noted along tarsometatarsal joints 2-4, possibly early septic joint at these locations. Electronically signed by: Varun Angel M.D. 01/25/25 21:33 PM
[2025-01-25] MEDS: SODIUM CHLORIDE 0.9% 1,000 ML IV ONE (22:10)
[2025-01-25] MEDS: HEPARIN SOD 5,000 UNIT/0.5 ML VIAL SQ SCH (22:16)
[2025-01-26] MEDS ORDERED: VANCOMYCIN CONSULT ACTIVE PRN (00:43)
[2025-01-26] MEDS: CEFEPIME 2000MG 2,000 MG/20 ML SYR IV SCH (01:57)
[2025-01-26] MEDS: VANCOMYCIN HCL / NSS 1,000 MG/270 ML BAG IV SCH (04:10)
[2025-01-26] MEDS: ACETAMINOPHEN 325 MG TAB PO PRN (05:58)
[2025-01-26 08:37] LABS: Hematocrit (blood only) 35.3 % (37.0-47.0); Hemoglobin 11.2 g/dl (12.0-16.0); Immature Granulocytes # (auto) 0.12 K/uL (0.01-0.20); Immature Granulocytes % (auto) 1.0 %; Mean Corpuscular Hemoglobin 30.9 pg (25.0-34.0); Mean Corpuscular Volume 97.5 fL (80.0-100.0); Platelet Count 357 K/uL (130-400); RDW Standard Deviation 47.3 fL (36.4-46.3); Red Blood Count 3.62 M/uL (4.20-5.40); White Blood Count 11.84 K/ul (4.8-10.8)
[2025-01-26 08:49] LABS: Anion Gap 5 (3-11); Blood Urea Nitrogen 13 mg/dl (6-23); Calcium 8.8 mg/dl (8.6-10.3); Carbon Dioxide 30 mmol/L (21-32); Chloride 104 mmol/L (98-107); Creatinine Clr Calc Pharmacy 90.9 ml/min; Glucose 85 mg/dl (70-99(Fasting)); Potassium 3.9 mmol/L (3.5-5.1); Sodium 139 mmol/L (136-145)
--- NOTE | 2025-01-26 10:57 | XRay Report ---
XR foot LT min 3V routine CLINICAL HISTORY: infection left foot COMPARISON: MRI yesterday FINDINGS: There are mild degenerative changes at the first TMT and MTP joints. On the oblique view t here is minimal cortical thinning at the distal medial aspect of the medial cuneiform and at the hansel cent medial base of the first metatarsal consistent with early osteomyelitis. Findings were better se en on MRI. No acute fracture or dislocation seen. IMPRESSION: X-ray findings suggest early osteomyelitis at the medial aspect of the first TMT joint. P meredith see the MRI report. ACT 112: Negative or not required by law. Electronically signed by: Kolton Martinez M.D. 01/26/2025 10:56 AM
--- NOTE | 2025-01-26 14:16 | Pharmacy Report ---
Pharmacy PK ABX Note - Date of Service January 26, 2025 - Assessment and Plan Assessment 01/26: * Vancomycin level drawn this morning was 10.8 which extrapolated to an AUC below the goal range. The maintenance dose of vancomycin was increased. * Blood cultures x 2 from 01/25 are still pending. * Leukocytosis present but improving (15.4->11.8 today), afebrile, normal procal, and Scr stable and at baseline. * Left foot MRI concerning for septic joint(s), osteomyelitis, and soft tissue abscess. 01/25: * 64 year old F receiving cefepime and vancomycin for treatment of osteomyelitis * Recent outpatient cephalexin * Pertinent microbiologic data includes: blood cultures pending * SCr is at/near baseline Plan Vancomycin * Vancomycin level drawn today was 10.8 which extrapolates to an AUC less then 400mg/L.hr. * Increase maintenance dose: 1250 mg IV every 12 hours * Target AUC/LILIA of 400-600 mg/L.hr * Random level ordered for 01/28 @ 1200 Pharmacy will continue to follow and will adjust dose/frequency as necessary. Thank you. Pharmacy has transitioned to AUC monitoring for vancomycin. AUC/LILIA is the preferred PK/PD target and is associated with decreased risk of nephrotoxicity compared to traditional trough targets.
[2025-01-26] MEDS: VANCOMYCIN HCL 1,250 MG in SODIUM CHLORIDE 0.9% 250 ML IV SCH (16:09)
--- NOTE | 2025-01-26 20:20 | Hospitalist Progress Note ---
Date of Service January 26, 2025 Assessment & Plan (1) Foot osteomyelitis, left: Plan: To address #1, patient received ceftriaxone 2g IV x 1 dose (01/25/2025, 4:10pm) and vancomycin 1.75g IV x 1 dose (01/25/2025, 4:43pm) in [facility] ER bed #C6. Patient subsequently received cefepime 2g IV x 1 dose (01/25/2025, 6:03pm) to provide pseudomonal coverage not inherent to ceftriaxone, given involvement of this non-diabetic patient's left foot and giv en ubiquitous pseudomonal predilection for soil and water. Patient subsequently will continue with cefepime 2g IV q8 (day #42 on 01/26/2025, 2:03am) and vancomycin 1g IV q12 (day #42 on 01/26/2025, 4:43am) as I check repeat vitals, left foot exam, WBC w/diff, ESR, CRP, blood culture #1 (01/25/2025, 3:34pm), and blood culture #2 (01/25/2025, 4:06pm), in the 01/27/2025 am. (2) Elevated lactic acid level: Plan: To address #2, patient received empiric antibiotics as described in bullet #1 above, as the etiology of acute lactic acid elevation was most likely due to acute left foot cellulitis, if not acute left foot osteomyelitis and/or acute left foot abscess(es); in addition, patient received 1 liter of 0.9% NS @ 72 mL/hr (01/25/2025, 8:18pm), based on a delivery rate of 1 mL of 0.9% NS per kg of body weight per hour, and a body weight of 71.6 kg, as another etiology of acute lactic acid elevation was most likely due to acute dehydration in the infected state. I will check repeat lactic acid #5 (01/27/2025, 4:44am), to check for any recurrence of acute lactic acid elevation, which has RESOLVED with lactic acid #4 1.3 mmol/L (01/26/2025, 8:13am). Admission and Anticipated Discharge Date Admission Date: January 25, 2025 Subjective "My left foot feels better after starting the IV antibiotics. The IV antibiotics are working, doc. The tail ripper Dr. Andrzej Harris came by earlier today and said we can continue the IV antibiotics this weekend and see how my left foot looks on Wednesday, and decide what the next step(s) will be. I said ok." Review of Systems Constitutional: Patient denies antecedent/coincident fevers, chills, diaphoresis, cough, wheeze, sore throat, hemoptysis, pleurisy, SOB/SANDOVAL, nausea, vomiting, diarrhea, abdominal pain, abdominal pain, pelvic pain, hematemesis, hematochezia, melena, hematuria, dysuria, frequency, urgency, headaches, dizziness, lightheadedness, visual changes, hearing changes, weakness, falls, syncope, trauma, travel history, sick contacts, food/drug ingestions novel or new, or enanthem. All other review of systems are reported as negative by the patient on 01/26/2025. Physical Exam Constitutional: General: Comfortable, cooperative, coherent. Wide awake and alert. Not confused, lethargic, or obtunded. Patient speaks in complete, fluent, and articulate sentences without pause, interruption, cough, or wheeze. HEENT: NC/AT. EOMI. PERRL. No nystagmus, gaze paresis, anisocoria, miosis, mydriasis, chemosis, hyphema, scleral injection, conjunctivitis, or pterygium. No otorrhea. No rhinorrhea. Neck: Supple, no stridor, bruit, or goiter. Jugular venous pressure 5cm above the sternal angle of Cash, which is typically 5 cm above the right atrium. Lymph: No anterior/posterior cervical lymphadenopathy, supracla vicular/infraclavicular lymphadenopathy, axilla/epitrochlear/inguinal lymphadenopathy. Chest: Symmetric rise and fall with respirations. Non-tender to palpation. Heart: RRR, S1 and S2. No S3 or S4 summation gallop. No tripartite friction rub. No murmur. Lungs: Clear to auscultation and percussion. No audible expiratory wheeze, egophony, pectoriloquy, increase in tactile fremitus, or flatness/dullness to percussion at the bases. Abd: Soft, non-tender, non-distended. Bowel sounds auscultated in all 4 quadrants. No rebound, guarding, Avilez's sign, or organomegaly. Ext: No clubbing, cyanosis, or edema. 2+ pedal pulses bilaterally. Skin: No decubitus ulcer or enanthem. Light purplish discoloration UNCHANGED (on 01/26/2025, compared to 01/25/2025 exam) to the dorsum of left foot, sparing the left medial malleolus, the left lateral malleolus, and the left toes #1, #2, #3, #4, and #5 (which were edematous nonetheless). Dorsum of the left foot appears LESS (on 01/26/2025, compared to 01/25/2025 exam) warm, indurated, and mildly tender without crepitus, fluctuance, discharge (sanguineous, serous, suppurative), ulceration, malodor, or lymphangitic streaking. Sole of the left foot (sparing the calcaneal sole and mid-sole) and the plantar surface of the left hallux, the left 3rd, 4th, and 5th toes noted for discrete areas of desquamation. Neuro: No tremors, tics, or myoclonus. DTR+. Urology: No kowalski catheter. No urethral discharge. Results & Data Results & Data Vital Signs (Past 12 Hours) Vital Signs Temp Pulse Resp BP Pulse Ox O2 Del Method 01/26/25 16:21 36.7 C 78 18 108/68 98 Room Air Laboratory Results WBC 15.36, N87 L 9 M2 B1, Hb 13.5, MCV 95.9, MCHC 33.8, platelet 421 (01/25/2025, 3:34pm). WBC 11.84, N61 L31 M7 E1, Hb 11.2, MCV 97.5, MCHC 31.7, platelet 357 (01/26/2025, 8:13am). ESR 44 mm/hr, CRP < 0.50 mg/dL (01/25/2025, 3:34pm). ESR 21 mm/hr, CRP < 0.50 mg/dL (01/26/2025, 8:13am). Lactic acid #1 1.6 mmol/L (01/25/2025, 3:34pm). Lactic acid #2 2.3 mmol/L (01/25/2025, 5:27pm). Lactic acid #3 2.6 mmol/L (01/25/2025, 9:56pm). Lactic acid #4 1.3 mmol/L (01/26/2025, 8:13am). Procalcitonin #1 < 0.02 ng/mL (01/25/2025, 3:34pm). Procalcitonin #2 < 0.02 ng/mL (01/26/2025, 8:13am). Blood culture #1 (01/25/2025, 3:34pm): Blood culture #2 (01/25/2025, 4:06pm): Na 138, K 3.9, BUN 15, creatinine 0.70, glucose 115, anion gap 10, CO2 28, Ca 9.7, AST 14, ALT 19, ALK PHOS 114, total bili 0.4 (01/25/2025, 3:34pm). Na 139, K 3.9, BUN 13, creatinine 0.60, glucose 85, anion gap 5, CO2 30, Ca 8.8 (01/26/2025, 8:13am). Diagnostic Findings MRI left foot with/without IV contrast (01/25/2025, 7:24pm): 1. Joint effusion of the 1st tarsometatarsal joint with bone marrow signal abnormality and enhancement in the 1st cuneiform and 1st metatarsal base, raising concern for septic joint and osteomyelitis. Along the plantar aspect of the joint space there is a 10 mm rim enhancing collection concerning for a soft tissue abscess, abutting the lateral margin of the peroneus longus tendon. 2. More mild signal changes and enhancement are noted along tarsometatarsal joints 2-4, possibly early septic joint at these location. X-ray left foot, 3 views (01/26/2025, 10:08am): 1. X-ray findings suggest early osteomyelitis at the medial aspect of the first TMT joint. Please see the MRI report. PG Care Time/CCT Total # of Minutes Spent Total Time Spent with Patient: Total time spent is greater than 50% in coordination of care (as documented) at patient's floor/unit and/or counseling patient: Coding Level of Care Code 09726 SUB INP/OBS CARE 2MIN Diagnoses Foot osteomyelitis, left M86.9 Elevated lactic acid level R79.89
[2025-01-26] MEDS: MoRPHine SULFATE 4 MG/ML 1 ML CARP\\VIAL IV PRN (21:38)
--- NOTE | 2025-01-27 00:49 | Podiatry Consultation ---
Date of Consultation January 27, 2025 Assessment & Plan (1) Elevated lactic acid level: (2) Foot osteomyelitis, left: (3) Gout: (4) Swelling of left foot: (5) Left foot pain: (6) Cellulitis: Laterality: left Site of cellulitis: extremity Site of cellulitis of extremity: lower extremity Qualified Code(s): L03.116 - Cellulitis of left lower limb Plan Lengthy discussion with patient and regarding possible ideology and treatment options for septic joint and osteomyelitis of the right foot. We discussed aspiration of the first metatarsal cuneiform joint however patient does not wish to move forward with aspiration at this time. We discussed incision and drainage with open arthrotomy of the metatarsal cuneiform joint. At present patient has seen a significant reduction in symptoms over the past week with decreased redness swelling and pain to the right foot. She would like to continue IV antibiotics and elevation of the right foot as we monitor progress over the weekend before moving forward with aspiration and/or I&D of the right foot which I agree is reasonable given somewhat atypical presentation of hematogenous osteomyelitis in the foot with significant improvement over the past week. Plan to reevaluate patient's foot and lab work around 6 AM Wednesday morning. Should symptoms persist at that time without positive trend and lab values would recommend incision and drainage of the right foot. Should patient notice a significant reduction in symptoms over the weekend I believe it is reasonable to avoid incision and drainage in this joint however will require close monitoring and 6 weeks of IV antibiotics for treatment of osteomyelitis. Thank you for consulting podiatry to aid in the care of this patient. I will continue to follow her course while she remains in house and recommend appropriate follow-up at the time of discharge. History of Present Illness Reason for Consultation: Osteomyelitis right foot Attending Physician: Rich Spain MD, PhD History of Present Illness 64-year-old female presents to [facility] emergency department 01/25/2025 after receiving results of an MRI of the right foot with concern for osteomyelitis and possible septic joint. Patient reports acute onset of redness swelling and pain in the right foot beginning on January 09, 2025 while traveling to [place] for dental appointment. Patient denies history of trauma, surgical intervention or ulceration to the right foot. By the end of the visit her foot did become markedly swollen erythematous and too painful to bear weight. She was prescribed a Medrol Dosepak January 10 with concern for possible acute gout of her patient did not have any improvement in symptoms. She reported to the emergency department on January 13 and was given a prescription for cephalexin 500 mg p.o. every 6 hours for 7 days which she completed on January 23. She was seen by her PCP in follow-up on January 17 due to persistent sympt oms and was initiated on prednisone 40 mg p.o. daily. Patient noted significant reduction in swelling and pain after initiation of the steroid taper. She she had an MRI at an outside facility on January 20 showing moderate diffuse edema at the medial forefoot at the base of the first metatarsal and the medial cuneiform as well as intramuscular edema and collection of fluid involving the flexor hallucis brevis and abductor hallucis concerning for intramuscular abscess and osteomyelitis. Was also noted that she had some subchondral edema at the 2nd and 3rd metatarsal joints. Potential sources of infection including colonoscopy on following which she did have urinary tract infection which was treated with cephalexin for 7 days as well as colitis diagnosed by CT scan which was treated for 7 days with p.o. levofloxacin. Patient reports resolution of all symptoms following treatment with p.o. antibiotics. Patient also reports having a pedicure on January 09 as a possible source of infection to the right foot. Repeat MRI and x-ray of the right foot following admission are consistent with septic arthritis of the first metatarsal cuneiform joint and osteomyelitis to the medial cuneiform and base of the first metatarsal. On admission patient has white blood count of 15.36 which is decreased on 01 26- 11.84, ESR of 41 which is decreased to 21, CRP within normal limits, proca lcitonin within normal limits, lactic acid 2.6 which is decreased to 1.3, blood cultures were with no growth after 24 hours. Uric acid 3.8 01/17/2025. Patient denies any illness, nausea, vomiting, fever, chills, shortness of breath, chest pain, malaise between January 09 and time of admission. Patient initiated on IV cefepime and vancomycin for management of suspected osteomyelitis of the right foot. Allergies Allergy/AdvReac Type Severity Reaction Status Date / Time gabapentin [From Neurontin] Allergy Intermediate Rash Verified 01/17/25 13:05 atorvastatin AdvReac Severe leg Verified 01/17/25 13:05 crampings chlorhexidine AdvReac Severe Rash Verified 01/17/25 13:05 codeine AdvReac Mild NAUSEA Verified 01/17/25 13:05 amoxicillin AdvReac Unknown NAUSEA/DIAR Verified 01/17/25 13:05 NAYANA clavulanic acid AdvReac Unknown NAUSEA/DIAR Verified 01/17/25 13:05 NAYANA Home Medications Medication Instructions Recorded Confirmed Type cyclobenzaprine 10 mg tablet 5 - 10 mg PO UD PRN muscle spasms 08/27/23 01/25/25 History mecobalamin (vitamin B12) See Rx Instructions .Route .COMPLEX 09/13/23 01/25/25 History celecoxib 200 mg capsule (Celebrex) 200 mg PO DAILY PRN pain #30 caps 08/07/24 01/25/25 Rx lorazepam 0.5 mg tablet 0.5 mg PO DAILY PRN anxiety #30 10/02/24 01/25/25 Rx tabs mupirocin 2 % topical ointment 1 applic topical BID PRN dryness 10/02/24 01/25/25 Rx in nose, mainly in winter #22 grams cholecalciferol (vitamin D3) 1,250 50,000 unit PO WK #12 caps 10/04/24 01/25/25 Rx mcg (50,000 unit) capsule cholecalciferol (vitamin D3) 25 75 mcg PO QPM 12/01/24 01/25/25 History mcg (1,000 unit) tablet (Vitamin D3) oxycodone 5 mg tablet 5 mg PO Q8H PRN pain #15 tabs 01/16/25 01/25/25 Rx prednisone 10 mg tablet See Rx Instructions .Route 01/23/25 01/25/25 Rx .COMPLEX #30 tabs Patient History Medical History ASCUS of cervix with negative high risk HPV hx Thoracic spine pain "occasional" Coronary artery calcification seen on CT scan Right knee pain still has pain 2/2 to "bad" knee replacement Nasal septal perforation Splenic artery aneurysm x3, being monitored Per 08/19/23 abdomen/pelvis CT- ". 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 History of tonsillectomy History of corneal transplant Left eye, s/t accident History of cholecystectomy History of arthroscopy LT KNEE Family History (Updated 01/25/25 @ 20:32 by Rich Spain MD, PhD) Mother , at 92 years of age from Alzheimer's dementia; patient's mother also was diagnosed with cervical carcinoma and lung carcinoma earlier in her life with underlying tobacco abuse, but the proximal cause of patient's mother's was Alzheimer's dementia at 92 years of age. Alzheimer disease Cervical cancer Lung cancer ASCVD (arteriosclerotic cardiovascular disease) Father , at 58 years of age from esophageal carcinoma in the setting of tobacco abuse, but no COPD, and not on home oxygen or home steroids. Esophageal cancer Daughter Asthma Breast cancer Brother Heart disease ASCVD (arteriosclerotic cardiovascular disease) Sister Heart disease Social History (Updated 01/25/25 @ 20:34 by Rich Spian MD, PhD) Smoking Status: Never smoker Second Hand Exposure: Yes (hx- smoked 40 years ago); Do You Dip or Chew Tobacco: No; Hx Alcohol Use: No Hx Substance Use: No Preferred Language: Ivorian Communication Ability: Effective Visual Impairment: Partially Limited Karate Instructor Required: No Beliefs That Will Affect Care: None marital status: marital status details: Visits and helps raise grandchildren of her 6 daughters and 4 sons. Current Living Situation: Spouse Current Living Situation Comment: Lives with in their own home. 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 How many Children do You have: 9 Feels Safe at Home: Yes Childhood Exposure to Second-Hand Smoke: Yes Dental Care, Regularly: Yes Physical Activity Frequency: 3-4 Times per Week Seatbelt Use: always Sunscreen Use: Yes Assistive Devices: Walker Review of Systems Review of Systems: Denies nausea, vomiting, fever, chills, shortness of breath, chest pain. Reports pain redness and swelling in the right foot. All other systems reviewed and negative unless otherwise stated in HPI. Physical Exam Physical Exam: Const: Appears well developed and well nourished. No signs of acute distress present. CV: Extremities: No cyanosis or edema. Capillary refill time is less than 2 seconds all digits of the bilateral foot. Posterior tibial and dorsalis pedis pulses are palpable bilateral. Lymph: No palpable or visible regional lymphadenopathy. Skin: No scars, rashes, lesions or ecchymosis. Neuro: Sensation intact to light touch in all areas of the foot and ankle. Psych: Mood/Affect: Mood is normal. Affect is normal. Cognition: Orientation is intact to person, place and time. Focused lower extremity musculoskeletal exam: Leg: No pain with compression of the calf muscle. Ankles: Normal to inspection and palpation. No swelling bilaterally. No tenderness bilaterally. Motor strength is intact. Range of motion pain-free and unlimited. Feet: Right foot: mottling of the skin and mild edema to the dorsal midfoot. Mild erythema dorsal midfoot. No lymphangitis or streaking. Mild discomfort to palpation of the first met cuneiform joint. Mild increase in warmth to palpation skin of the dorsal foot when compared to the contralateral limb. Significant pain to palpation of the first MPJ. No signs of external injury, ulceration or external soft tissue irritation. Results & Data Vital Signs (Past 12 Hours) Vital Signs Temp Pulse Resp BP Pulse Ox O2 Del Method 01/26/25 22:53 37 C 82 18 113/72 95 Room Air 01/26/25 16:21 36.7 C 78 18 108/68 98 Room Air PG Care Time/CCT Total # of Minutes Spent Total Time Spent with Patient: Total time spent is greater than 50% in coordination of care (as documented) at patient's floor/unit and/or counseling patient: [place] [address] INT INP/OBS CARE 3/75MIN Patient Type New Diagnoses Elevated lactic acid level R79.89 Foot osteomyelitis, left M86.9 Gout M10.9 Swelling of left foot M79.89 Left foot pain M79.672 Cellulitis L03.116 Laterality: left Site of cellulitis: extremity Site of cellulitis of extremity: lower extremity
[2025-01-27 07:18] LABS: Hematocrit (blood only) 35.4 % (37.0-47.0); Hemoglobin 11.6 g/dl (12.0-16.0); Immature Granulocytes # (auto) 0.10 K/uL (0.01-0.20); Immature Granulocytes % (auto) 1.2 %; Mean Corpuscular Hemoglobin 32.0 pg (25.0-34.0); Mean Corpuscular Volume 97.5 fL (80.0-100.0); Platelet Count 327 K/uL (130-400); RDW Standard Deviation 47.2 fL (36.4-46.3); Red Blood Count 3.63 M/uL (4.20-5.40); White Blood Count 8.10 K/ul (4.8-10.8)
[2025-01-27 07:35] LABS: Anion Gap 5 (3-11); Blood Urea Nitrogen 14 mg/dl (6-23); Calcium 8.8 mg/dl (8.6-10.3); Carbon Dioxide 29 mmol/L (21-32); Chloride 104 mmol/L (98-107); Creatinine Clr Calc Pharmacy 72.7 ml/min; Glucose 83 mg/dl (70-99(Fasting)); Potassium 4.1 mmol/L (3.5-5.1); Sodium 138 mmol/L (136-145)
--- NOTE | 2025-01-27 20:17 | Hospitalist Progress Note ---
Date of Service January 27, 2025 Assessment & Plan (1) Foot osteomyelitis, left: Plan: To address #1, patient received ceftriaxone 2g IV x 1 dose (01/25/2025, 4:10pm) and vancomycin 1.75g IV x 1 dose (01/25/2025, 4:43pm) in [facility] ER bed #C6. Patient subsequently received cefepime 2g IV x 1 dose (01/25/2025, 6:03pm) to provide pseudomonal coverage not inherent to ceftriaxone, given involvement of this non-diabetic patient's left foot and giv en ubiquitous pseudomonal predilection for soil and water. Patient subsequently will continue with cefepime 2g IV q8 (day #42 on 01/26/2025, 2:03am) and vancomycin 1g IV q12 (day #42 on 01/26/2025, 4:43am) as I check repeat vitals, left foot exam, WBC w/diff, ESR, CRP, blood culture #1 (01/25/2025, 3:34pm), and blood culture #2 (01/25/2025, 4:06pm), in the 01/28/2025 am. (2) Elevated lactic acid level: Plan: To address #2, patient received empiric antibiotics as described in bullet #1 above, as the etiology of acute lactic acid elevation was most likely due to acute left foot cellulitis, if not acute left foot osteomyelitis and/or acute left foot abscess(es); in addition, patient received 1 liter of 0.9% NS @ 72 mL/hr (01/25/2025, 8:18pm), based on a delivery rate of 1 mL of 0.9% NS per kg of body weight per hour, and a body weight of 71.6 kg, as another etiology of acute lactic acid elevation was most likely due to acute dehydration in the infected state. Subsequently, elevated lactic acid level has RESOLVED with lactic acid #4 1.3 mmol/L (01/26/2025, 8:13am) and lactic acid #5 1.1 mmol/L (01/27/2025, 6:57am). Admission and Anticipated Discharge Date Admission Date: January 25, 2025 Subjective "My left foot feels better today, after starting the IV antibiotics. The IV antibiotics are still working great. No fevers or chills. No pain now." Review of Systems Constitutional: Patient denies antecedent/coincident fevers, chills, diaphoresis, cough, wheeze, sore throat, hemoptysis, pleurisy, SOB/SANDOVAL, nausea, vomiting, diarrhea, abdominal pain, abdominal pain, pelvic pain, hematemesis, hematochezia, melena, hematuria, dysuria, frequency, urgency, headaches, dizziness, lightheadedness, visual changes, hearing changes, weakness, falls, syncope, trauma, travel history, sick contacts, food/drug ingestions novel or new, or enanthem. All other review of systems are reported as negative by the patient on 01/27/2025. Physical Exam Constitutional: General: Comfortable, cooperative, coherent. Wide awake and alert. Not confused, lethargic, or obtunded. Patient speaks in complete, fluent, and articulate sentences without pause, interruption, cough, or wheeze. HEENT: NC/AT. EOMI. PERRL. No nystagmus, gaze paresis, anisocoria, miosis, mydriasis, chemosis, hyphema, scleral injection, conjunctivitis, or pterygium. No otorrhea. No rhinorrhea. Neck: Supple, no stridor, bruit, or goiter. Jugular venous pressure 5cm above the sternal angle of Cash, which is typically 5 cm above the right atrium. Lymph: No anterior/posterior cervical lymphadenopathy, supraclavicular/infraclavicular lymphadenopathy, axilla/epitrochlear/inguinal lymphadenopathy. Chest: Symmetric rise and fall with respirations. Non-tender to palpation. Heart: RRR, S1 and S2. No S3 or S4 summation gallop. No tripartite friction rub. No murmur. Lungs: Clear to auscultation and percussion. No audible expiratory wheeze, egophony, pectoriloquy, increase in tactile fremitus, or flatness/dullness to percussion at the bases. Abd: Soft, non-tender, non-distended. Bowel sounds auscultated in all 4 quadrants. No rebound, guarding, Avilez's sign, or organomegaly. Ext: No clubbing, cyanosis, or edema. 2+ pedal pulses bilaterally. Skin: No decubitus ulcer or enanthem. Light purplish discoloration evanescent on 01/27/2025 exam, when compared to 01/26/2025 and 01/25/2025 exams) to the dorsum of left foot, sparing the left medial malleolus, the left lateral malleolus, and the left toes #1, #2, #3, #4, and #5 (which were edematous nonetheless). Dorsum of the left foot appears LESS (on 01/27/2025 and on 01/26/2025, compared to 01/25/2025 exams) warm, indurated, and mildly tender without crepitus, fluctuance, discharge (sanguineous, serous, suppurative), ulceration, malodor, or lymphangitic streaking. Sole of the left foot (sparing the calcaneal sole and mid-sole) and the plantar surface of the left hallux, the left 3rd, 4th, and 5th toes noted for discrete areas of desquamation. Neuro: No tremors, tics, or myoclonus. DTR+. Urology: No kowalski catheter. No urethral discharge. Results & Data Results & Data Vital Signs (Past 12 Hours) Vital Signs Temp Pulse Resp BP Pulse Ox O2 Del Method 01/27/25 15:44 36.8 C 72 18 116/76 95 Room Air 01/27/25 09:26 36.9 C 73 18 113/71 95 Room Air Laboratory Results WBC 15.36, N87 L 9 M2 B1, Hb 13.5, MCV 95.9, MCHC 33.8, platelet 421 (01/25/2025, 3:34pm). WBC 11.84, N61 L31 M7 E1, Hb 11.2, MCV 97.5, MCHC 31.7, platelet 357 (01/26/2025, 8:13am). WBC 8.10, N51 L36 M8 E3 B1, Hb 11.6, MCV 97.5, MCHC 32.8, platelet 327 (01/27/2025, 6:57am). ESR 44 mm/hr, CRP < 0.50 mg/dL (01/25/2025, 3:34pm). ESR 21 mm/hr, CRP < 0.50 mg/dL (01/26/2025, 8:13am). ESR 23 mm/hr, CRP < 0.50 mg/dL (01/27/2025, 6:57am). Lactic acid #1 1.6 mmol/L (01/25/2025, 3:34pm). Lactic acid #2 2.3 mmol/L (01/25/2025, 5:27pm). Lactic acid #3 2.6 mmol/L (01/25/2025, 9:56pm). Lactic acid #4 1.3 mmol/L (01/26/2025, 8:13am). Lactic acid #5 1.1 mmol/L (01/27/2025, 6:57am). Procalcitonin #1 < 0.02 ng/mL (01/25/2025, 3:34pm). Procalcitonin #2 < 0.02 ng/mL (01/26/2025, 8:13am). Procalcitonin #3 < 0.02 ng/mL (01/27/2025, 6:57am). Blood culture #1 (01/25/2025, 3:34pm): Blood culture #2 (01/25/2025, 4:06pm): Na 138, K 3.9, BUN 15, creatinine 0.70, glucose 115, anion gap 10, CO2 28, Ca 9.7, AST 14, ALT 19, ALK PHOS 114, total bili 0.4 (01/25/2025, 3:34pm). Na 139, K 3.9, BUN 13, creatinine 0.60, glucose 85, anion gap 5, CO2 30, Ca 8.8 (01/26/2025, 8:13am). Na 138, K 4.1, BUN 14, creatinine 0.75, glucose 83, anion gap 5, CO2 29, Ca 8.8 (01/27/2025, 6:57am). Diagnostic Findings MRI left foot with/without IV contrast (01/25/2025, 7:24pm): 1. Joint effusion of the 1st tarsometatarsal joint with bone marrow signal abnormality and enhancement in the 1st cuneiform and 1st metatarsal base, raising concern for septic joint and osteomyelitis. Along the plantar aspect of the joint space there is a 10 mm rim enhancing collection concerning for a soft tissue abscess, abutting the lateral margin of the peroneus longus tendon. 2. More mild signal changes and enhancement are noted along tarsometatarsal joints 2-4, possibly early septic joint at these location. X-ray left foot, 3 views (01/26/2025, 10:08am): 1. X-ray findings suggest early osteomyelitis at the medial aspect of the first TMT joint. Please see the MRI report. PG Care Time/CCT Total # of Minutes Spent Total Time Spent with Patient: Total time spent is greater than 50% in coordination of care (as documented) at patient's floor/unit and/or counseling patient: Coding Level of Care Code 71944 SUB INP/OBS CARE 2/35MIN Diagnoses Foot osteomyelitis, left M86.9 Elevated lactic acid level R79.89
[2025-01-28 07:13] LABS: Hematocrit (blood only) 35.5 % (37.0-47.0); Hemoglobin 11.8 g/dl (12.0-16.0); Immature Granulocytes # (auto) 0.09 K/uL (0.01-0.20); Immature Granulocytes % (auto) 0.9 %; Mean Corpuscular Hemoglobin 32.3 pg (25.0-34.0); Mean Corpuscular Volume 97.3 fL (80.0-100.0); Platelet Count 320 K/uL (130-400); RDW Standard Deviation 47.5 fL (36.4-46.3); Red Blood Count 3.65 M/uL (4.20-5.40); White Blood Count 10.01 K/ul (4.8-10.8)
[2025-01-28 07:42] LABS: Anion Gap 4.0 (3-11); Blood Urea Nitrogen 14.0 mg/dl (6-23); Calcium 8.9 mg/dl (8.6-10.3); Carbon Dioxide 30.0 mmol/L (21-32); Chloride 103.0 mmol/L (98-107); Creatinine Clr Calc Pharmacy 73.7 ml/min; Glucose 91.0 mg/dl (70-99(Fasting)); Potassium 4.1 mmol/L (3.5-5.1); Sodium 137.0 mmol/L (136-145)
--- NOTE | 2025-01-28 13:05 | Pharmacy Report ---
Pharmacy PK ABX Note - Date of Service January 28, 2025 - Assessment and Plan Assessment 01/28: * Patient afebrile, WBC 10.0 (from 8.1 yesterday), SCr stable at 0.74 (CrCl ~73 mL/min) * Vancomycin level @1200 resulted at 14.0 mcg/mL * Based on level, the current regimen of 1250 mg IV every 12 hours is therapeutic within AUC/LILIA goal range of 400-600 * Continue vancomycin 1250 mg IV every 12 hours * Next level ordered: 01/31/25 @1200 01/26: * Vancomycin level drawn this morning was 10.8 which extrapolated to an AUC below the goal range. The maintenance dose of vancomycin was increased. * Blood cultures x 2 from 01/25 are still pending. * Leukocytosis present but improving (15.4->11.8 today), afebrile, normal procal, and Scr stable and at baseline. * Left foot MRI concerning for septic joint(s), osteomyelitis, and soft tissue abscess. 01/25: * 64 year old F receiving cefepime and vancomycin for treatment of osteomyelitis * Recent outpatient cephalexin * Pertinent microbiologic data includes: blood cultures pending * SCr is at/near baseline Plan Vancomycin * Vancomycin level drawn today was 10.8 which extrapolates to an AUC less then 400mg/L.hr. * Increase maintenance dose: 1250 mg IV every 12 hours * Target AUC/LILIA of 400-600 mg/L.hr * Random level ordered for 01/28 @ 1200 Pharmacy will continue to follow and will adjust dose/frequency as necessary. Thank you. Pharmacy has transitioned to AUC monitoring for vancomycin. AUC/LILIA is the preferred PK/PD target and is associated with decreased risk of nephrotoxicity compared to traditional trough targets.
--- NOTE | 2025-01-28 17:04 | Hospitalist Progress Note ---
Date of Service January 28, 2025 Assessment & Plan (1) Foot osteomyelitis, left: Plan: To address #1, patient received ceftriaxone 2g IV x 1 dose (01/25/2025, 4:10pm) and vancomycin 1.75g IV x 1 dose (01/25/2025, 4:43pm) in [facility] ER bed #C6. Patient subsequently received cefepime 2g IV x 1 dose (01/25/2025, 6:03pm) to provide pseudomonal coverage not inherent to ceftriaxone, given involvement of this non-diabetic patient's left foot and giv en ubiquitous pseudomonal predilection for soil and water. Patient subsequently will continue with cefepime 2g IV q8 (day # on 01/26/2025, 2:03am) and vancomycin 1.25g IV q12 (day # on 01/26/2025, 4:43am) as I check repeat vitals, left foot exam, WBC w/diff, ESR, CRP, blood culture #1 (01/25/2025, 3:34pm), and blood culture #2 (01/25/2025, 4:06pm), in the 01/29/2025 am. (2) Elevated lactic acid level: Plan: To address #2, patient received empiric antibiotics as described in bullet #1 above, as the etiology of acute lactic acid elevation was most likely due to acute left foot cellulitis, if not acute left foot osteomyelitis and/or acute left foot abscess(es); in addition, patient received 1 liter of 0.9% NS @ 72 mL /hr (01/25/2025, 8:18pm), based on a delivery rate of 1 mL of 0.9% NS per kg of body weight per hour, and a body weight of 71.6 kg, as another etiology of acute lactic acid elevation was most likely due to acute dehydration in the infected state. Subsequently, elevated lactic acid level has RESOLVED with lactic acid #4 1.3 mmol/L (01/26/2025, 8:13am) and lactic acid #5 1.1 mmol/L (01/27/2025, 6:57am). Admission and Anticipated Discharge Date Admission Date: January 25, 2025 Subjective "My left foot feels better today, after starting the IV antibiotics. The IV antibiotics are still working great. No fevers or chills. No pain now." Review of Systems Constitutional: Patient denies antecedent/coincident fevers, chills, diaphoresis, cough, wheeze, sore throat, hemoptysis, pleurisy, SOB/SANDOVAL, nausea, vomiting, diarrhea, abdominal pain, abdominal pain, pelvic pain, hematemesis, hematochezia, melena, hematuria, dysuria, frequency, urgency, headaches, dizziness, lightheadedness, visual changes, hearing changes, weakness, falls, syncope, trauma, travel history, sick contacts, food/drug ingestions novel or new, or enanthem. All other review of systems are reported as negative by the patient on 01/28/2025. Physical Exam Constitutional: General: Comfortable, cooperative, coherent. Wide awake and alert. Not confused, lethargic, or obtunded. Patient speaks in complete, fluent, and articulate sentences without pause, interruption, cough, or wheeze. HEENT: NC/AT. EOMI. PERRL. No nystagmus, gaze paresis, anisocoria, miosis, mydriasis, chemosis, hyphema, scleral injection, conjunctivitis, or pterygium. No otorrhea. No rhinorrhea. Neck: Supple, no stridor, bruit, or goiter. Jugular venous pressure 5cm above the sternal angle of Cash, which is typically 5 cm above the right atrium. Lymph: No anterior/posterior cervical lymphadenopathy, supraclavicular/infraclavicular lymphadenopathy, axilla/epitrochlear/inguinal lymphadenopathy. Chest: Symmetric rise and fall with respirations. Non-tender to palpation. Heart: RRR, S1 and S2. No S3 or S4 summation gallop. No tripartite friction rub. No murmur. Lungs: Clear to auscultation and percussion. No audible expiratory wheeze, egophony, pectoriloquy, increase in tactile fremitus, or flatness/dullness to percussion at the bases. Abd: Soft, non-tender, non-distended. Bowel sounds auscultated in all 4 quadrants. No rebound, guarding, Avilez's sign, or organomegaly. Ext: No clubbing, cyanosis, or edema. 2+ pedal pulses bilaterally. Skin: No decubitus ulcer or enanthem. Light purplish discoloration evanescent on 01/28/2025 exam and on 01/27/2025 exam, when compared to 01/26/2025 exam and 01/25/2025 admission exam) to the dorsum of left foot, sparing the left medial malleolus, the left lateral malleolus, and the left toes #1, #2, #3, #4, and #5 (which were edematous nonetheless). Dorsum of the left foot appears LESS (on 01/28/2025, 01/27/2025, and 01/26/2025 exams, compared to 01/25/2025 admission exam) warm, indurated, and mildly tender without crepitus, fluctuance, discharge (sanguineous, serous, suppurative), ulceration, malodor, or lymphangitic streaking. Sole of the left foot (sparing the calcaneal sole and mid-sole) and the plantar surface of the left hallux, the left 3rd, 4th, and 5th toes noted for discrete areas of desquamation. Neuro: No tremors, tics, or myoclonus. DTR+. Urology: No kowalski catheter. No urethral discharge. Results & Data Results & Data Vital Signs (Past 12 Hours) Vital Signs Temp Pulse Resp BP Pulse Ox O2 Del Method 01/28/25 15:53 37.3 C 90 18 116/74 96 Room Air 01/28/25 07:03 36.9 C 65 18 125/81 97 Room Air Laboratory Results WBC 15.36, N87 L 9 M2 B1, Hb 13.5, MCV 95.9, MCHC 33.8, platelet 421 (01/25/2025, 3:34pm). WBC 11.84, N61 L31 M7 E1, Hb 11.2, MCV 97.5, MCHC 31.7, platelet 357 (01/26/2025, 8:13am). WBC 8.10, N51 L36 M8 E3 B1, Hb 11.6, MCV 97.5, MCHC 32.8, platelet 327 (01/27/2025, 6:57am). WBC 10.01, N64 L25 M8 E3 B1, Hb 11.8, MCV 97.3, MCHC 33.2, platelet 320 (01/28/2025, 6:51am). ESR 44 mm/hr, CRP < 0.50 mg/dL (01/25/2025, 3:34pm). ESR 21 mm/hr, CRP < 0.50 mg/dL (01/26/2025, 8:13am). ESR 23 mm/hr, CRP < 0.50 mg/dL (01/27/2025, 6:57am). ESR 30 mm/hr, CRP 0.70 mg/dL (01/28/2025, 6:51am). Lactic acid #1 1.6 mmol/L (01/25/2025, 3:34pm). Lactic acid #2 2.3 mmol/L (01/25/2025, 5:27pm). Lactic acid #3 2.6 mmol/L (01/25/2025, 9:56pm). Lactic acid #4 1.3 mmol/L (01/26/2025, 8:13am). Lactic acid #5 1.1 mmol/L (01/27/2025, 6:57am). Lactic acid #6 1.2 mmol/L (01/28/2025, 6:51am). Procalcitonin #1 < 0.02 ng/mL (01/25/2025, 3:34pm). Procalcitonin #2 < 0.02 ng/mL (01/26/2025, 8:13am). Procalcitonin #3 < 0.02 ng/mL (01/27/2025, 6:57am). Procalcitonin #4 < 0.02 ng/mL (01/28/2025, 6:51am). Blood culture #1 (01/25/2025, 3:34pm): Blood culture #2 (01/25/2025, 4:06pm): Na 138, K 3.9, BUN 15, creatinine 0.70, glucose 115, anion gap 10, CO2 28, Ca 9.7, AST 14, ALT 19, ALK PHOS 114, total bili 0.4 (01/25/2025, 3:34pm). Na 139, K 3.9, BUN 13, creatinine 0.60, glucose 85, anion gap 5, CO2 30, Ca 8.8 (01/26/2025, 8:13am). Na 138, K 4.1, BUN 14, creatinine 0.75, glucose 83, anion gap 5, CO2 29, Ca 8.8 (01/27/2025, 6:57am). Na 137, K 4.1, BUN 14, creatinine 0.74, glucose 91, anion gap 4, CO2 30, Ca 8.9 (01/28/2025, 6:51am). Diagnostic Findings MRI left foot with/without IV contrast (01/25/2025, 7:24pm): 1. Joint effusion of the 1st tarsometatarsal joint with bone marrow signal abnormality and enhancement in the 1st cuneiform and 1st metatarsal base, raising concern for septic joint and osteomyelitis. Along the plantar aspect of the joint space there is a 10 mm rim enhancing collection concerning for a soft tissue abscess, abutting the lateral margin of the peroneus longus tendon. 2. More mild signal changes and enhancement are noted along tarsometatarsal joints 2-4, possibly early septic joint at these location. X-ray left foot, 3 views (01/26/2025, 10:08am): 1. X-ray findings suggest early osteomyelitis at the medial aspect of the first TMT joint. Please see the MRI report. PG Care Time/CCT Total # of Minutes Spent Total Time Spent with Patient: Total time spent is greater than 50% in coordination of care (as documented) at patient's floor/unit and/or counseling patient: Coding Level of Care Code 76640 SUB INP/OBS CARE 2/35MIN Diagnoses Foot osteomyelitis, left M86.9 Elevated lactic acid level R79.89
[2025-01-29 07:15] LABS: Hematocrit (blood only) 35.4 % (37.0-47.0); Hemoglobin 11.4 g/dl (12.0-16.0); Mean Corpuscular Hemoglobin 31.4 pg (25.0-34.0); Mean Corpuscular Volume 97.5 fL (80.0-100.0); Platelet Count 294 K/uL (130-400); RDW Standard Deviation 47.7 fL (36.4-46.3); Red Blood Count 3.63 M/uL (4.20-5.40); White Blood Count 6.53 K/ul (4.8-10.8)
[2025-01-29 07:41] LABS: Creatinine Clr Calc Pharmacy 88.0 ml/min
--- NOTE | 2025-01-29 10:04 | Podiatry Progress Note ---
Date of Service January 29, 2025 Assessment & Plan (1) Osteomyelitis: (2) Foot osteomyelitis, left: (3) Swelling of left foot: (4) Abscess of left foot: (5) Cellulitis of left foot: (6) Septic arthritis of left foot: Plan Patient respectfully declining recommendation I&D at this time. Cancel I&D of left foot. Patient okay to resume heart healthy diet from podiatry standpoint. - Recommend continued nonweightbearing to the left foot. Continue rest and elevation left lower extremity. - Patient continues IV cefepime and vancomycin. Blood cultures 01/25/2025 with no growth in 48 hours. Patient would benefit from continued IV antibiotics which improved of osteomyelitis and septic joint of the left foot. Will follow-up with patient in the podiatry office within 1 week of discharge for continued monitoring, serial x-rays and monitoring of lab values including CRP and ESR. Explained to patient that should numbers continue to trend upward or if she should develop increased redness swelling or pain to the left foot would recommend reconsidering incision and drainage with bone biopsies and antibiotic placement surrounding the first met cuneiform joint of the left foot. Admission and Anticipated Discharge Date Admission Date: January 25, 2025 Subjective Patient seen resting comfortably in hospital bed. Reports significant reduction in pain to the left foot over the past 48 hours. Denies nausea, vomiting, fever, chills, shortness of breath, chest pain. Denies malaise. She is now able to bear weight on the foot though it is uncomfortable. At the time of admission she reports she was not even able to touch the floor with the foot due to extreme pain at the level of the midfoot. Lengthy discussion with patient regarding recommendation for incision and drainage with washout and antibiotic placement within the first met cuneiform joint exploration of the area of noted abscess on MRI. We discussed the fact that ESR and CRP numbers are trending upwards despite IV antibiotics. Explained that incision and drainage would be standard of care for suspected septic joint, abscess with osteomyelitis. This will allow us to collect bone for pathology and culture as well as soft tissue cultures and evacuate any pockets of infection. Patient respectfully declining recommendation I&D at this time. Given her significant clinical improvement and lack of a desire to have surgery on the foot which she fears with increased pain she would like to continue to monitor the infection closely radiographically, clinically and through lab work. Review of Systems Review of Systems: Negative unless otherwise stated in HPI. Reduced pain to the left foot over the past 48 hours. Physical Exam Physical Exam: Const: Appears well developed and well nourished. No signs of acute distress present. CV: Extremities: No cyanosis or edema. Capillary refill time is less than 2 seconds all digits of the bilateral foot. Posterior tibial and dorsalis pedis pulses are palpable bilateral. Lymph: No palpable or visible regional lymphadenopathy. Skin: No scars, rashes, lesions or ecchymosis. Neuro: Sensation intact to light touch in all areas of the foot and ankle. Psych: Mood/Affect: Mood is normal. Affect is normal. Cognition: Orientation is intact to person, place and time. Focused lower extremity musculoskeletal exam: Leg: No pain with compression of the calf muscle. Ankles: Normal to inspection and palpation. No swelling bilaterally. No tenderness bilaterally. Motor strength is intact. Range of motion pain-free and unlimited. Feet: Right foot: Diffuse mottling of the skin and mild edema to the dorsal midfoot extending to the forefoot. No crepitus on palpation of the soft tissues in the first interspace between the base of the 1st and 2nd metatarsal or surrounding first metatarsal cuneiform joint. Mild erythema dorsal midfoot. No lymphangitis or streaking. Mild discomfort to palpation of the first met cuneiform joint. Mild increase in warmth to palpation skin of the dorsal foot when compared to the contralateral limb. Mild pain to palpation of the first MPJ. No signs of external injury, ulceration or external soft tissue irritation. Results & Data Results & Data Vital Signs (Past 12 Hours) Vital Signs Temp Pulse Resp BP Pulse Ox O2 Del Method 01/29/25 07:29 37.0 C 78 18 123/74 96 Room Air 01/29/25 07:05 Room Air 01/28/25 23:01 37 C 80 18 117/76 94 Room Air Coding Level of Care Code 86424 SUB INP/OBS CARE 2/35MIN Diagnoses Osteomyelitis M86.072 Laterality: left Osteomyelitis location: foot Osteomyelitis type: acute hematogenous Acute hematogenous osteomyelitis of left foot M86.072 Osteomyelitis type: acute hematogenous Swelling of left foot M79.89 Abscess of left foot L02.612 Cellulitis of left foot L03.116 Septic arthritis of left foot, due to unspecified organism M00.9 Septic arthritis organism: due to unspecified organism (1) Osteomyelitis Laterality: left Osteomyelitis location: foot Osteomyelitis type: acute hematogenous Qualified Code(s): M86.072 - Acute hematogenous osteomyelitis, left ankle and foot (2) Foot osteomyelitis, left Osteomyelitis type: acute hematogenous Qualified Code(s): M86.072 - Acute hematogenous osteomyelitis, left ankle and foot (6) Septic arthritis of left foot Septic arthritis organism: due to unspecified organism Qualified Code(s): M00.9 - Pyogenic arthritis, unspecified
--- NOTE | 2025-01-29 21:18 | Hospitalist Progress Note ---
Date of Service January 29, 2025 Assessment & Plan (1) Foot osteomyelitis, left: Plan: To address #1, patient received ceftriaxone 2g IV x 1 dose (01/25/2025, 4:10pm) and vancomycin 1.75g IV x 1 dose (01/25/2025, 4:43pm) in [facility] ER bed #C6. Patient subsequently received cefepime 2g IV x 1 dose (01/25/2025, 6:03pm) to provide pseudomonal coverage not inherent to ceftriaxone, given involvement of this non-diabetic patient's left foot and giv en ubiquitous pseudomonal predilection for soil and water. Patient subsequently will continue with cefepime 2g IV q8 (day # on 01/26/2025, 2:03am) and vancomycin 1.25g IV q12 (day # on 01/26/2025, 4:43am) as I check repeat vitals, left foot exam, WBC w/diff, ESR, CRP, blood culture #1 (01/25/2025, 3:34pm), and blood culture #2 (01/25/2025, 4:06pm), in the 01/30/2025 am. (2) Elevated lactic acid level: Plan: To address #2, patient received empiric antibiotics as described in bullet #1 above, as the etiology of acute lactic acid elevation was most likely due to acute left foot cellulitis, if not acute left foot osteomyelitis and/or acute left foot abscess(es); in addition, patient received 1 liter of 0.9% NS @ 72 mL /hr (01/25/2025, 8:18pm), based on a delivery rate of 1 mL of 0.9% NS per kg of body weight per hour, and a body weight of 71.6 kg, as another etiology of acute lactic acid elevation was most likely due to acute dehydration in the infected state. Subsequently, elevated lactic acid level has RESOLVED with lactic acid #4 1.3 mmol/L (01/26/2025, 8:13am) and lactic acid #5 1.1 mmol/L (01/27/2025, 6:57am). Admission and Anticipated Discharge Date Admission Date: January 25, 2025 Subjective "My left foot feels better today, after starting the IV antibiotics. The IV antibiotics are still working great. No fevers or chills. No pain now." Review of Systems Constitutional: Patient denies antecedent/coincident fevers, chills, diaphoresis, cough, wheeze, sore throat, hemoptysis, pleurisy, SOB/SANDOVAL, nausea, vomiting, diarrhea, abdominal pain, abdominal pain, pelvic pain, hematemesis, hematochezia, melena, hematuria, dysuria, frequency, urgency, headaches, dizziness, lightheadedness, visual changes, hearing changes, weakness, falls, syncope, trauma, travel history, sick contacts, food/drug ingestions novel or new, or enanthem. All other review of systems are reported as negative by the patient on 01/29/2025. Physical Exam Constitutional: General: Comfortable, cooperative, coherent. Wide awake and alert. Not confused, lethargic, or obtunded. Patient speaks in complete, fluent, and articulate sentences without pause, interruption, cough, or wheeze. HEENT: NC/AT. EOMI. PERRL. No nystagmus, gaze paresis, anisocoria, miosis, mydriasis, chemosis, hyphema, scleral injection, conjunctivitis, or pterygium. No otorrhea. No rhinorrhea. Neck: Supple, no stridor, bruit, or goiter. Jugular venous pressure 5cm above the sternal angle of [place], which is typically 5 cm above the right atrium. Lymph: No anterior/posterior cervical lymphadenopathy, supraclavicular/infraclavicular lymphadenopathy, axilla/epitrochlear/inguinal lymphadenopathy. Chest: Symmetric rise and fall with respirations. Non-tender to palpation. Heart: RRR, S1 and S2. No S3 or S4 summation gallop. No tripartite friction rub. No murmur. Lungs: Clear to auscultation and percussion. No audible expiratory wheeze, egophony, pectoriloquy, increase in tactile fremitus, or flatness/dullness to percussion at the bases. Abd: Soft, non-tender, non-distended. Bowel sounds auscultated in all 4 quadrants. No rebound, guarding, Avilez's sign, or organomegaly. Ext: No clubbing, cyanosis, or edema. 2+ pedal pulses bilaterally. Skin: No decubitus ulcer or enanthem. LESS purplish discoloration evanescent on 01/29/2025 exam and on 01/28/2025 exam and on 01/27/2025 exam, when compared to 01/26/2025 exam and 01/25/2025 admission exam) to the dorsum of left foot, sparing the left medial malleolus, the left lateral malleolus, and the left toes #1, #2, #3, #4, and #5 (which were edematous nonetheless). Dorsum of the left foot appears LESS (on 01/29/2025, 01/28/2025, 01/27/2025, and 01/26/2025 exams, compared to 01/25/2025 admission exam) warm, indurated, and mildly tender without crepitus, fluctuance, discharge (sanguineous, serous, suppurative), ulceration, malodor, or lymphangitic streaking. Sole of the left foot (sparing the calcaneal sole and mid-sole) and the plantar surface of the left hallux, the left 3rd, 4th, and 5th toes noted for discrete areas of desquamation. Neuro: No tremors, tics, or myoclonus. DTR+. Urology: No kowalski catheter. No urethral discharge. Results & Data Results & Data Vital Signs (Past 12 Hours) Vital Signs Temp Pulse Resp BP Pulse Ox O2 Del Method 01/29/25 14:20 37.0 C 96 H 18 114/74 96 Room Air Laboratory Results WBC 15.36, N87 L 9 M2 B1, Hb 13.5, MCV 95.9, MCHC 33.8, platelet 421 (01/25/2025, 3:34pm). WBC 11.84, N61 L31 M7 E1, Hb 11.2, MCV 97.5, MCHC 31.7, platelet 357 (01/26/2025, 8:13am). WBC 8.10, N51 L36 M8 E3 B1, Hb 11.6, MCV 97.5, MCHC 32.8, platelet 327 (01/27/2025, 6:57am). WBC 10.01, N64 L25 M8 E3 B1, Hb 11.8, MCV 97.3, MCHC 33.2, platelet 320 (01/28/2025, 6:51am). WBC 6.53, no differential, Hb 11.4, MCV 97.5, MCHC 32.2, platelet 294 (01/29/2025, 6:54am). ESR 44 mm/hr, CRP < 0.50 mg/dL (01/25/2025, 3:34pm). ESR 21 mm/hr, CRP < 0.50 mg/dL (01/26/2025, 8:13am). ESR 23 mm/hr, CRP < 0.50 mg/dL (01/27/2025, 6:57am). ESR 30 mm/hr, CRP 0.70 mg/dL (01/28/2025, 6:51am). ESR 38 mm/hr, CRP 1.67 mg/dL (01/29/2025, 6:54am). Lactic acid #1 1.6 mmol/L (01/25/2025, 3:34pm). Lactic acid #2 2.3 mmol/L (01/25/2025, 5:27pm). Lactic acid #3 2.6 mmol/L (01/25/2025, 9:56pm). Lactic acid #4 1.3 mmol/L (01/26/2025, 8:13am). Lactic acid #5 1.1 mmol/L (01/27/2025, 6:57am). Lactic acid #6 1.2 mmol/L (01/28/2025, 6:51am). Lactic acid #7 1.0 mmol/L (01/29/2025, 6:54am). Procalcitonin #1 < 0.02 ng/mL (01/25/2025, 3:34pm). Procalcitonin #2 < 0.02 ng/mL (01/26/2025, 8:13am). Procalcitonin #3 < 0.02 ng/mL (01/27/2025, 6:57am). Procalcitonin #4 < 0.02 ng/mL (01/28/2025, 6:51am). Procalcitonin #5 < 0.02 ng/mL (01/29/2025, 6:54am). Blood culture #1 (01/25/2025, 3:34pm): Blood culture #2 (01/25/2025, 4:06pm): Na 138, K 3.9, BUN 15, creatinine 0.70, glucose 115, anion gap 10, CO2 28, Ca 9.7, AST 14, ALT 19, ALK PHOS 114, total bili 0.4 (01/25/2025, 3:34pm). Na 139, K 3.9, BUN 13, creatinine 0.60, glucose 85, anion gap 5, CO2 30, Ca 8.8 (01/26/2025, 8:13am). Na 138, K 4.1, BUN 14, creatinine 0.75, glucose 83, anion gap 5, CO2 29, Ca 8.8 (01/27/2025, 6:57am). Na 137, K 4.1, BUN 14, creatinine 0.74, glucose 91, anion gap 4, CO2 30, Ca 8.9 (01/28/2025, 6:51am). creatinine 0.62 (01/29/2025, 6:54am). Diagnostic Findings MRI left foot with/without IV contrast (01/25/2025, 7:24pm): 1. Joint effusion of the 1st tarsometatarsal joint with bone marrow signal abnormality and enhancement in the 1st cuneiform and 1st metatarsal base, raising concern for septic joint and osteomyelitis. Along the plantar aspect of the joint space there is a 10 mm rim enhancing collection concerning for a soft tissue abscess, abutting the lateral margin of the peroneus longus tendon. 2. More mild signal changes and enhancement are noted along tarsometatarsal joints 2-4, possibly early septic joint at these location. X-ray left foot, 3 views (01/26/2025, 10:08am): 1. X-ray findings suggest early osteomyelitis at the medial aspect of the first TMT joint. Please see the MRI report. PG Care Time/CCT Total # of Minutes Spent Total Time Spent with Patient: Total time spent is greater than 50% in coordination of care (as documented) at patient's floor/unit and/or counseling patient: Coding Level of Care Code 46772 SUB INP/OBS CARE MIN Diagnoses Acute hematogenous osteomyelitis of left foot M86.072 Osteomyelitis type: acute hematogenous Elevated lactic acid level R79.89 (1) Foot osteomyelitis, left Osteomyelitis type: acute hematogenous Qualified Code(s): M86.072 - Acute hematogenous osteomyelitis, left ankle and foot
[2025-01-30 07:17] LABS: Hematocrit (blood only) 35.5 % (37.0-47.0); Hemoglobin 11.3 g/dl (12.0-16.0); Mean Corpuscular Hemoglobin 31.0 pg (25.0-34.0); Mean Corpuscular Volume 97.5 fL (80.0-100.0); Platelet Count 284 K/uL (130-400); RDW Standard Deviation 48.3 fL (36.4-46.3); Red Blood Count 3.64 M/uL (4.20-5.40); White Blood Count 6.25 K/ul (4.8-10.8)
[2025-01-30] MEDS: HEPARIN 100 UNIT/ML 5ML FLUSH FLUSH PRN (18:31)
--- NOTE | 2025-01-30 22:25 | Hospitalist Progress Note ---
Date of Service January 30, 2025 Assessment & Plan (1) Foot osteomyelitis, left: Plan: To address #1, patient received ceftriaxone 2g IV x 1 dose (01/25/2025, 4:10pm) and vancomycin 1.75g IV x 1 dose (01/25/2025, 4:43pm) in [facility] ER bed #C6. Patient subsequently received cefepime 2g IV x 1 dose (01/25/2025, 6:03pm) to provide pseudomonal coverage not inherent to ceftriaxone, given involvement of this non-diabetic patient's left foot and giv en ubiquitous pseudomonal predilection for soil and water. Patient subsequently will continue with cefepime 2g IV q8 (day # on 01/26/2025, 2:03am) and vancomycin 1.25g IV q12 (day # on 01/26/2025, 4:43am) as I check repeat vitals, left foot exam, WBC w/diff, ESR, CRP, blood culture #1 (01/25/2025, 3:34pm), and blood culture #2 (01/25/2025, 4:06pm), in the 01/31/2025 am. (2) Elevated lactic acid level: Plan: To address #2, patient received empiric antibiotics as described in bullet #1 above, as the etiology of acute lactic acid elevation was most likely due to acute left foot cellulitis, if not acute left foot osteomyelitis and/or acute left foot abscess(es); in addition, patient received 1 liter of 0.9% NS @ 72 mL /hr (01/25/2025, 8:18pm), based on a delivery rate of 1 mL of 0.9% NS per kg of body weight per hour, and a body weight of 71.6 kg, as another etiology of acute lactic acid elevation was most likely due to acute dehydration in the infected state. Subsequently, elevated lactic acid level has RESOLVED with lactic acid #4 1.3 mmol/L (01/26/2025, 8:13am) and lactic acid #5 1.1 mmol/L (01/27/2025, 6:57am). Admission and Anticipated Discharge Date Admission Date: January 25, 2025 Subjective "My left foot feels better today, after starting the IV antibiotics. The IV antibiotics are still working great. No fevers or chills. No pain now." Review of Systems Constitutional: Patient denies antecedent/coincident fevers, chills, diaphoresis, cough, wheeze, sore throat, hemoptysis, pleurisy, SOB/SANDOVAL, nausea, vomiting, diarrhea, abdominal pain, abdominal pain, pelvic pain, hematemesis, hematochezia, melena, hematuria, dysuria, frequency, urgency, headaches, dizziness, lightheadedness, visual changes, hearing changes, weakness, falls, syncope, trauma, travel history, sick contacts, food/drug ingestions novel or new, or enanthem. All other review of systems are reported as negative by the patient on 01/30/2025. Physical Exam Constitutional: General: Comfortable, cooperative, coherent. Wide awake and alert. Not confused, lethargic, or obtunded. Patient speaks in complete, fluent, and articulate sentences without pause, interruption, cough, or wheeze. HEENT: NC/AT. EOMI. PERRL. No nystagmus, gaze paresis, anisocoria, miosis, mydriasis, chemosis, hyphema, scleral injection, conjunctivitis, or pterygium. No otorrhea. No rhinorrhea. Neck: Supple, no stridor, bruit, or goiter. Jugular venous pressure 5cm above the sternal angle of [place], which is typically 5 cm above the right atrium. Lymph: No anterior/posterior cervical lymphadenopathy, supraclavicular/infraclavicular lymphadenopathy, axilla/epitrochlear/inguinal lymphadenopathy. Chest: Symmetric rise and fall with respirations. Non-tender to palpation. Heart: RRR, S1 and S2. No S3 or S4 summation gallop. No tripartite friction rub. No murmur. Lungs: Clear to auscultation and percussion. No audible expiratory wheeze, egophony, pectoriloquy, increase in tactile fremitus, or flatness/dullness to percussion at the bases. Abd: Soft, non-tender, non-distended. Bowel sounds auscultated in all 4 quadrants. No rebound, guarding, Avilez's sign, or organomegaly. Ext: No clubbing, cyanosis, or edema. 2+ pedal pulses bilaterally. Skin: No decubitus ulcer or enanthem. LESS purplish discoloration evanescent on 01/29/2025 exam and on 01/28/2025 exam and on 01/27/2025 exam, when compared to 01/26/2025 exam and 01/25/2025 admission exam) to the dorsum of left foot, sparing the left medial malleolus, the left lateral malleolus, and the left toes #1, #2, #3, #4, and #5 (which were edematous nonetheless). Dorsum of the left foot appears LESS (on 01/29/2025, 01/28/2025, 01/27/2025, and 01/26/2025 exams, compared to 01/25/2025 admission exam) warm, indurated, and mildly tender without crepitus, fluctuance, discharge (sanguineous, serous, suppurative), ulceration, malodor, or lymphangitic streaking. Sole of the left foot (sparing the calcaneal sole and mid-sole) and the plantar surface of the left hallux, the left 3rd, 4th, and 5th toes noted for discrete areas of desquamation. Neuro: No tremors, tics, or myoclonus. DTR+. Urology: No kowalski catheter. No urethral discharge. Results & Data Results & Data Vital Signs (Past 12 Hours) Vital Signs Temp Pulse Resp BP Pulse Ox O2 Del Method 01/30/25 15:33 36.9 C 87 18 134/79 98 Room Air Laboratory Results WBC 15.36, N87 L 9 M2 B1, Hb 13.5, MCV 95.9, MCHC 33.8, platelet 421 (01/25/2025, 3:34pm). WBC 11.84, N61 L31 M7 E1, Hb 11.2, MCV 97.5, MCHC 31.7, platelet 357 (01/26/2025, 8:13am). WBC 8.10, N51 L36 M8 E3 B1, Hb 11.6, MCV 97.5, MCHC 32.8, platelet 327 (01/27/2025, 6:57am). WBC 10.01, N64 L25 M8 E3 B1, Hb 11.8, MCV 97.3, MCHC 33.2, platelet 320 (01/28/2025, 6:51am). WBC 6.53, no differential, Hb 11.4, MCV 97.5, MCHC 32.2, platelet 294 (01/29/2025, 6:54am). WBC 6.25, no differential, Hb 11.3, MCV 97.5, MCHC 31.8, platelet 284 (01/30/2025, 6:56am). ESR 44 mm/hr, CRP < 0.50 mg/dL (01/25/2025, 3:34pm). ESR 21 mm/hr, CRP < 0.50 mg/dL (01/26/2025, 8:13am). ESR 23 mm/hr, CRP < 0.50 mg/dL (01/27/2025, 6:57am). ESR 30 mm/hr, CRP 0.70 mg/dL (01/28/2025, 6:51am). ESR 38 mm/hr, CRP 1.67 mg/dL (01/29/2025, 6:54am). ESR 35 mm/hr, CRP 1.07 mg/dL (01/30/2025, 6:56am). Lactic acid #1 1.6 mmol/L (01/25/2025, 3:34pm). Lactic acid #2 2.3 mmol/L (01/25/2025, 5:27pm). Lactic acid #3 2.6 mmol/L (01/25/2025, 9:56pm). Lactic acid #4 1.3 mmol/L (01/26/2025, 8:13am). Lactic acid #5 1.1 mmol/L (01/27/2025, 6:57am). Lactic acid #6 1.2 mmol/L (01/28/2025, 6:51am). Lactic acid #7 1.0 mmol/L (01/29/2025, 6:54am). Lactic acid #8 0.9 mmol/L (01/30/2025, 6:56am). Procalcitonin #1 < 0.02 ng/mL (01/25/2025, 3:34pm). Procalcitonin #2 < 0.02 ng/mL (01/26/2025, 8:13am). Procalcitonin #3 < 0.02 ng/mL (01/27/2025, 6:57am). Procalcitonin #4 < 0.02 ng/mL (01/28/2025, 6:51am). Procalcitonin #5 < 0.02 ng/mL (01/29/2025, 6:54am). Procalcitonin #6 0.02 ng/mL (01/30/2025, 6:56am). Blood culture #1 (01/25/2025, 3:34pm): Blood culture #2 (01/25/2025, 4:06pm): Na 138, K 3.9, BUN 15, creatinine 0.70, glucose 115, anion gap 10, CO2 28, Ca 9.7, AST 14, ALT 19, ALK PHOS 114, total bili 0.4 (01/25/2025, 3:34pm). Na 139, K 3.9, BUN 13, creatinine 0.60, glucose 85, anion gap 5, CO2 30, Ca 8.8 (01/26/2025, 8:13am). Na 138, K 4.1, BUN 14, creatinine 0.75, glucose 83, anion gap 5, CO2 29, Ca 8.8 (01/27/2025, 6:57am). Na 137, K 4.1, BUN 14, creatinine 0.74, glucose 91, anion gap 4, CO2 30, Ca 8.9 (01/28/2025, 6:51am). creatinine 0.62 (01/29/2025, 6:54am). Diagnostic Findings MRI left foot with/without IV contrast (01/25/2025, 7:24pm): 1. Joint effusion of the 1st tarsometatarsal joint with bone marrow signal abnormality and enhancement in the 1st cuneiform and 1st metatarsal base, raising concern for septic joint and osteomyelitis. Along the plantar aspect of the joint space there is a 10 mm rim enhancing collection concerning for a soft tissue abscess, abutting the lateral margin of the peroneus longus tendon. 2. More mild signal changes and enhancement are noted along tarsometatarsal joints 2-4, possibly early septic joint at these location. X-ray left foot, 3 views (01/26/2025, 10:08am): 1. X-ray findings suggest early osteomyelitis at the medial aspect of the first TMT joint. Please see the MRI report. PG Care Time/CCT Total # of Minutes Spent Total Time Spent with Patient: Total time spent is greater than 50% in coordination of care (as documented) at patient's floor/unit and/or counseling patient: Coding Level of Care Code 21071 SUB INP/OBS CARE 2/35MIN Diagnoses Acute hematogenous osteomyelitis of left foot M86.072 Osteomyelitis type: acute hematogenous Elevated lactic acid level R79.89 (1) Foot osteomyelitis, left Osteomyelitis type: acute hematogenous Qualified Code(s): M86.072 - Acute hematogenous osteomyelitis, left ankle and foot
[2025-01-31 02:50] VITALS: TEMP 97.7
[2025-01-31 07:00] VITALS: BP 114/74; PULSE 78; RESP 18; O2SAT 97
[2025-01-31 07:25] LABS: Hematocrit (blood only) 33.4 % (37.0-47.0); Hemoglobin 10.7 g/dl (12.0-16.0); Mean Corpuscular Hemoglobin 30.9 pg (25.0-34.0); Mean Corpuscular Volume 96.5 fL (80.0-100.0); Platelet Count 244 K/uL (130-400); RDW Standard Deviation 47.2 fL (36.4-46.3); Red Blood Count 3.46 M/uL (4.20-5.40); White Blood Count 5.89 K/ul (4.8-10.8)
[2025-01-31 07:43] LABS: Creatinine Clr Calc Pharmacy 95.7 ml/min
--- NOTE | 2025-01-31 13:14 | Pharmacy Report ---
Pharmacy PK ABX Note - Date of Service January 31, 2025 - Assessment and Plan Assessment 01/31: * Patient afebrile, WBC wnl, SCr improved at 0.57 (CrCl ~96 mL/min) * Vancomycin level @1200 resulted at 12.1 mcg/mL * Patient continues on cefepime + vancomycin for Left Foot Osteomyelitis 01/28: * Patient afebrile, WBC 10.0 (from 8.1 yesterday), SCr stable at 0.74 (CrCl ~73 mL/min) * Vancomycin level @1200 resulted at 14.0 mcg/mL * Based on level, the current regimen of 1250 mg IV every 12 hours is therapeutic within AUC/LILIA goal range of 400-600 * Continue vancomycin 1250 mg IV every 12 hours * Next level ordered: 01/31/25 @1200 01/26: * Vancomycin level drawn this morning was 10.8 which extrapolated to an AUC below the goal range. The maintenance dose of vancomycin was increased. * Blood cultures x 2 from 01/25 are still pending. * Leukocytosis present but improving (15.4->11.8 today), afebrile, normal procal, and Scr stable and at baseline. * Left foot MRI concerning for septic joint(s), osteomyelitis, and soft tissue abscess. 01/25: * 64 year old F receiving cefepime and vancomycin for treatment of Left Foot osteomyelitis * Recent outpatient cephalexin * Pertinent microbiologic data includes: blood cultures pending * SCr is at/near baseline Plan Vancomycin * Continue 1250 mg IV every 12 hours, therapeutic within AUC/LILIA goal range of 400-600 * Repeat level in 48-72 hours Cefepime 2g IV Q8H Pharmacy will continue to follow and will adjust dose/frequency as necessary. Thank you. Pharmacy has transitioned to AUC monitoring for vancomycin. AUC/LILIA is the preferred PK/PD target and is associated with decreased risk of nephrotoxicity compared to traditional trough targets.
--- NOTE | 2025-01-31 15:09 | Discharge Summary ---
Discharge Summary Date of Service January 31, 2025 Principal Dx & Hospital Course #1 = Principal Diagnosis (1) Foot osteomyelitis, left: To address #1, patient received ceftriaxone 2g IV x 1 dose (01/25/2025, 4:10pm) and vancomycin 1.75g IV x 1 dose (01/25/2025, 4:43pm) in [facility] ER bed #C6. Patient subsequently received cefepime 2g IV x 1 dose (01/25/2025, 6:03pm) to provide pseudomonal coverage not inherent to ceftriaxone, given involvement of this non-diabetic patient's left foot and given ubiquitous pseudomonal predilection for soil and water. Patient subsequently continued with cefepime 2g IV q8 (day #1/42 on 01/26/2025, 1:57am; day #5/42 on 01/31/2025, 10:30am) x 17 doses, vancomycin 1g IV q12 x 1 dose (day #1/42 on 01/26/2025, 4:10am), then vancomycin 1.25g IV q12 (day #1/42 on 01/26/2025, 4:09pm; day #5/42 on 01/31/2025, 5:23am) x 10 doses. Patient tolerated both antibiotics very well without any complaints/side effects. Patient subsequently underwent PICC insertion in the right arm on 01/30/2025. Patient subsequently was discharged back to her home with cefepime 2g IV q12 x 36.5 more days (last dose on day #42 on 03/08/2025, 10:30pm) and vancomycin 1g IV q12 x 36.5 more days (last dose on day #42 on 03/08/2025, 5:23pm) via PICC; home infusion therapy service with home IV antibiotics were arranged/coordinated by [facility] Ms. Bessie Alves. Patient reports that she will follow up with her new Infectious Disease Dr. Dinesh Roa @ [facility] within 5-7 days of hospital discharge for initial/first Infectious Disease visit and will also undergo weekly CBC w/ differential, creatinine level, ESR level, and CRP level testing while continuing the cefepime 2g IV q12 x 36.5 more days (last dose on day #42 on 03/08/2025, 10:30pm) and vancomycin 1g IV q12 x 36.5 more days (last dose on day #42 on 03/08/2025, 5:23pm) via PICC. Given that patient did not undergo bone biopsy or abscess fluid aspiration while in [facility] from admission date 01/25/2025 through discharge date 01/31/2025, patient was advised to undergo repeat MRI left foot with IV contrast after completing cefepime 2g IV q12 x 36.5 more days (last dose on day #42 on 03/08/2025, 10:30pm) and vancomycin 1g IV q12 x 36.5 more days (last dose on day #42 on 03/08/2025, 5:23pm) via PICC, to assess for resolution of acute left foot osteomyelitis @ left 1st tarso-metatarsal joint with 10mm rim-enhancing abscess abutting the lateral margin of the left peroneus longus tendon. cf., WBC 12.18, N72 L16 M12, Hb 12.0, MCV 96.0, MCHC 33.1, platelet 222 (01/13/2025, 4:30pm).(pre-admission). cf., WBC 15.36, N87 L 9 M 2 B1, Hb 13.5, MCV 95.9, MCHC 33.8, platelet 421 (01/25/2025, 3:34pm).(admission). cf., WBC 11.84, N61 L31 M 7 E1, Hb 11.2, MCV 97.5, MCHC 31.7, platelet 357 (01/26/2025, 8:13am). cf., WBC 8.10, N64 L25 M 7 E3, Hb 11.6, MCV 97.5, MCHC 32.8, platelet 327 (01/27/2025, 6:57am). cf., WBC 10.01, no differential, Hb 11.8, MCV 97.3, MCHC 33.2, platelet 320 (01/28/2025, 6:51am). cf., WBC 6.53, no differential, Hb 11.4, MCV 97.5, MCHC 32.2, platelet 294 (01/29/2025, 6:54am). cf., WBC 6.25, no differential, Hb 11.3, MCV 97.5, MCHC 31.8, platelet 284 (01/30/2025, 6:56am). cf., WBC 5.89, no differential, Hb 10.7, MCV 96.5, MCHC 32.0, platelet 244 (01/31/2025, 7:04am).(discharge). cf., ESR 78 mm/hr, CRP 7.42 mg/dL (01/13/2025, 4:30pm).(pre-admission). cf., ESR 44 mm/hr, CRP < 0.5 mg/dL (01/25/2025, 3:34pm).(admission). cf., ESR 21 mm/hr, CRP < 0.5 mg/dL (01/26/2025, 8:13am). cf., ESR 23 mm/hr, CRP < 0.5 mg/dL (01/27/2025, 6:57am). cf., ESR 30 mm/hr, CRP < 0.5 mg/dL (01/28/2025, 6:51am). cf., ESR 38 mm/hr, CRP < 0.5 mg/dL (01/29/2025, 6:54am). cf., ESR 35 mm/hr, CRP < 0.5 mg/dL (01/30/2025, 6:56am). cf., ESR 34 mm/hr, CRP < 0.5 mg/dL (01/31/2025, 7:04am).(discharge). cf., Lactic acid #1 1.6 mmol/L (01/25/2025, 3:34pm).(admission). cf., Lactic acid #2 2.3 mmol/L (01/25/2025, 5:27pm). cf., Lactic acid #3 2.6 mmol/L (01/25/2025, 9:27pm). cf., Lactic acid #4 1.3 mmol/L (01/26/2025, 8:13am). cf., Lactic acid #5 1.1 mmol/L (01/27/2025, 6:57am). cf., Lactic acid #6 1.2 mmol/L (01/28/2025, 6:51am). cf., Lactic acid #7 1.0 mmol/L (01/29/2025, 6:54am). cf., Lactic acid #8 0.9 mmol/L (01/30/2025, 6:56am). cf., Lactic acid #9 1.2 mmol/L (01/31/2025, 7:04am).(discharge). cf., Procalcitonin < 0.02 ng/mL (01/13/2025, 4:30pm).(pre-admission). cf., Procalcitonin #1 < 0.02 ng/mL (01/25/2025, 3:34pm).(admission). cf., Procalcitonin #2 < 0.02 ng/mL (01/26/2025, 8:13am). cf., Procalcitonin #3 < 0.02 ng/mL (01/27/2025, 6:57am). cf., Procalcitonin #4 < 0.02 ng/mL (01/28/2025, 6:51am). cf., Procalcitonin #5 < 0.02 ng/mL (01/29/2025, 6:54am). cf., Procalcitonin #6 0.02 ng/mL (01/30/2025, 6:56am). cf., Procalcitonin #7 < 0.02 ng/mL (01/31/2025, 7:04am).(discharge). cf., Blood culture #1 (01/25/2025, 3:34pm): negative, final result after 5 days, publication date 01/31/2025, 6:42am. cf., Blood culture #2 (01/25/2025, 4:06pm): negative, final result after 5 days, publication date 01/31/2025, 6:42am. cf., Na 138, K 3.9, BUN 15, creatinine 0.70, glucose 115, anion gap 10, CO2 28, Ca 9.7, AST 14, ALT 19, ALK PHOS 114, total bili 0.4 (01/25/2025, 3:34pm).(admission). cf., Na 139, K 3.9, BUN 13, creatinine 0.60, glucose 85, anion gap 5, CO2 30, Ca 8.8 (01/26/2025, 8:13am). cf., Na 138, K 4.1, BUN 14, creatinine 0.75, glucose 83, anion gap 5, CO2 29, Ca 8.8 (01/27/2025, 6:57am). cf., Na 137, K 4.1, BUN 14, creatinine 0.74, glucose 91, anion gap 4, CO2 30, Ca 8.9 (01/28/2025, 6:51am). creatinine 0.62 (01/29/2025, 6:54am). creatinine 0.57 (01/31/2025, 7:04am).(discharge). (2) Elevated lactic acid level: To address #2, patient was started on empiric antibiotics as described in bullet #1 above, as the etiology of acute lactic acid elevation was most likely due to acute left foot cellulitis, if not acute left foot osteomyelitis and/or acute left foot abscess(es); in addition, patient was started on 1 liter of 0.9% NS @ 72 mL/hr (01/25/2025, 8:18pm), based on a delivery rate of 1 mL of 0.9% NS per kg of body weight per hour, and a body weight of 71.6 kg, as another etiology of acute lactic acid elevation was most likely due to acute dehydration in the infected state. Subsequently, acute lactic acid elevation RESOLVED with post- antibiotic treatment, post-IV fluid rehydration lactic acid #3 1.3 mmol/L (01/26/2025, 8:13am). Admission HPI Per Admitting Provider 64 years old female with PMH of FULL CODE @ home, anxiety disorder on lorazepam 0.5mg PO daily prn anxiety, hyperlipidemia, no longer on atorvastatin as it caused leg cramps, osteoarthritis, s/p right total knee arthroplasty (02/04/2018, [facility], Orthopedic Surgeon Dr. Juan A Nguyen), complicated by acute right peroneal DVT (02/05/2018, 5:12pm, [facility] venous doppler), who reports: In the patient's own words: " 1. On January 09, 2025, 11:00am, I felt my left foot start to swell up as I noticed that my shoe was feeling tight against my left foot. 2. On January 09, 2025, 11:30am, I could not put any weight on my left foot as the pain was terrible and constant, sharp and stabbing, more than a 10 (out of 10 point intensity scale) and which prevented me from going to sleep that nig ht. 3. On January 10, 2025, 9:00am, I went to see Orthopedic Surgeon Dr. Hardik Hernandez of [facility] and he said I had gout, so he prescribed for me a solumedrol dose pack and that did nothing for me. 4. On January 11, 2025, 10:00am, I had a video conference with my PCP Dr. Batsheva Harman's nurse practitioner, Fide Rios, and she advised that I keep taking the solumedrol dose pack, and prescribed NO antibiotics. I didn't get better. 5. On January 13, 2025, 4:00pm, I went to [facility] ER, and Ms. Kirsty AyalaEVERARDO, said I had cellulitis of my left foot, and so she prescribed keflex 500mg PO q6 x 7 days, #28 capsules, and I took all 28 capsules. Ms. Ayala also prescribed oxycodone 5mg PO q8 prn pain, #10 tabs, and a solumedrol dose pack, #21 tablets, and the oxycodone reduced the pain and the solumedrol brought the swelling down a little in my left foot, but my left foot was still very red and turned an ugly purple at times, so the infection in my left foot had not gone away completely. 6. On January 17, 2025, 9:00am, I went to see my PCP Dr. Batsheva Harman, and she was convinced I had gout, and not a foot infection, so she prescribed prednisone 40mg PO daily, #10 tablets, and prescribed NO antibiotics. The swelling and the pain went down a lot, but once again, my left foot was still very red and turned an ugly purple at times, so the infection in my left foot was still there. 7. On January 20, 2025, 9:03am, I went to [facility] ([address] [place] [address]) and I got a MRI of my left foot without IV contrast. This is the rep ort I got from [facility]: 1. Moderate diffuse edema in the medial cuneiform and the base/shaft of the first metatarsal bone (series 901, image 15). Moderate edema with intramuscular collections within the adjacent flexor hallucis brevis and adductor hallucis (series 701, image 12). This is of concern for intramuscular abscesses with osteomyelitis. 2. Mild subchondral edema in the second and third tarsometatarsal joints. (as per Radiologist Dr. Liza Cross, 01/24/2025, 2:27pm). 8. For the past two weeks, I have noticed that the sole of my left foot has been pealing off skin. There was never any blister(s) on the sole of my left foot. There was never any open wound on any part of my left leg where the redness and swelling was and still remains today, 01/25/2025. What is causing my skin to peal off from the sole of my left foot, doc? 9. I should let you know that 3 weeks before January 09, 2025, I went to a nail salon that I had not been to before for a while, but it was the closest one to me, so I went to the nail salon and got a pedicure where they trimmed my nails, pushed up my cuticles, and made my nails look great. I felt fine during and after the pedicure. You don't think that pedicure had anything to do with my left foot getting infected, do you? 10.I should also let you know that on December 07, 2024, 10:45pm, I went and had a colonoscopy done by GI Dr. Anmol Han, here at [facility]. He told me that I had 2 small cecal polyps that he removed, along with some diverticulosis in my sigmoid colon, and some non-bleeding internal hemorrhoids, and sent me home that same day. 2 days later, I was diagnosed with an acute UTI (cf., review of patient's medical chart reveals 12/18/2024 urine culture yielding 60,000 cfu/mL Streptococcus anginosus) and I got a prescription for keflex that I took for 3-4 times a day for 7 days. 3 days later, I was diagnosed with acute colitis (cf., review of patient's medical chart reveals 12/18/2024 CT abd/pelvis with IV/oral contrast reportin. Abnormal mural thickening with mild surrounding inflammation in the distal descending and sigmoid colon consistent with active colitis. No bowel obstruction or free air seen at this time. Follow-up with colonoscopy if further definitive diagnosis is recommended. 2. Stable multiple splenic artery aneurysm with the largest being 1.9 cm. 3. Stable biliary tree dilatation status post cholecystectomy. I got a prescription for levofloxacin 750mg PO daily for 7 days, and I felt be tter after that. You don't think that the colonoscopy had anything to do with my left foot getting infected, do you?" Patient denies antecedent/coincident fevers, chills, diaphoresis, cough, wheeze, sore throat, hemoptysis, pleurisy, SOB/SANDOVAL, nausea, vomiting, diarrhea, abdominal pain, abdominal pain, pelvic pain, hematemesis, hematochezia, melena, hematuria, dysuria, frequency, urgency, headaches, dizziness, lightheadedness, visual changes, hearing changes, weakness, falls, syncope, trauma, travel history, sick contacts, food/drug ingestions novel or new, or enanthem. All other review of systems are reported as negative by the patient on admission date 01/25/2025. In [facility] ER bed #C6, patient was afebrile @ 36.6 degrees Celsius, HR 80, RR 23, O2 sat 95% on room air, and BP 117/84 (01/24/2025, 4:20pm). Exam was noted for light purplish discoloration to the dorsum of left foot, sparing the left medial malleolus, the left lateral malleolus, and the left toes #1, #2, #3, #4, and #5 (which were edematous nonetheless). In addition, the dorsum of the left foot was warm, indurated, and mildly tender without crepitus, fluctuance, discharge (sanguineous, serous, suppurative), ulceration, malodor, or lymphangitic streaking. In addition, the sole of the left foot (sparing the calcaneal sole and mid-sole) and the plantar surface of the left hallux, the left 3rd, 4th, and 5th toes were noted for discrete areas of desquamation. Labs in [facility] ER bed #C6 included: WBC 15.36, N87 L 9 M2 B1, Hb 13.5, MCV 95.9, MCHC 33.8, platelet 421 (01/25/2025, 3:34pm). WBC 11.84, N61 L31 M7 E1, Hb 11.2, MCV 97.5, MCHC 31.7, platelet 357 (01/26/2025, 8:13am). ESR 44 mm/hr, CRP < 0.5 mg/dL (01/25/2025, 3:34pm). ESR 21 mm/hr, CRP < 0.5 mg/dL (01/26/2025, 8:13am). Lactic acid #1 1.6 mmol/L (01/25/2025, 3:34pm). Lactic acid #2 2.3 mmol/L (01/25/2025, 5:27pm). Lactic acid #3 2.6 mmol/L (01/25/2025, 9:27pm). Lactic acid #4 1.3 mmol/L (01/26/2025, 8:13am). Procalcitonin #1 < 0.02 ng/mL (01/25/2025, 3:34pm). Procalcitonin #2 < 0.02 ng/mL (01/26/2025, 8:13am). Blood culture #1 (01/25/2025, 3:34pm): Blood culture #2 (01/25/2025, 4:06pm): Na 138, K 3.9, BUN 15, creatinine 0.70, glucose 115, anion gap 10, CO2 28, Ca 9.7, AST 14, ALT 19, ALK PHOS 114, total bili 0.4 (01/25/2025, 3:34pm). Additional testing in [facility] ER bed #C6 included: MRI left foot with/without IV contrast (01/25/2025, 7:24pm): (rule out acute left foot osteomyelitis, rule out acute left foot abscess(es)). Patient was subsequently admitted to the inpatient hospitalist service @ [facility] on 01/25/2025 with the following diagnoses: 1. R/O acute left foot osteomyelitis, R/O acute left foot abscess(es), R/O streptococcal/staphylococcal bacteremia. 2. Acute lactic acid elevation with lactic acid #2 2.3 mmol/L (01/25/2025, 5:27pm) and lactic acid #3 2.6 mmol/L (01/25/2025, 9:56pm). To address #1, patient received ceftriaxone 2g IV x 1 dose (01/25/2025, 4:10pm) and vancomycin 1.75g IV x 1 dose (01/25/2025, 4:43pm) in [facility] ER bed #C6. Patient subsequently received cefepime 2g IV x 1 dose (01/25/2025, 6:03pm) to provide pseudomonal coverage not inherent to ceftriaxone, given involvement of this non-diabetic patient's left foot and given ubiquitous pseudomonal predilection for soil and water. Patient subsequently continued with cefepime 2g IV q8 (day #1/42 on 01/26/2025, 1:57am; day #5/42 on 01/31/2025, 10:30am) x 17 doses, vancomycin 1g IV q12 x 1 dose (day #1/42 on 01/26/2025, 4:10am), then vancomycin 1.25g IV q12 (day #1/42 on 01/26/2025, 4:09pm; day #5/42 on 01/31/2025, 5:23am) x 10 doses. Patient tolerated both antibiotics very well without any complaints/side effects. Patient subsequently underwent PICC insertion in the right arm on 01/30/2025. Patient subsequently was discharged back to her home with cefepime 2g IV q12 x 36.5 more days (last dose on day #42 on 03/08/2025, 10:30pm) and vancomycin 1g IV q12 x 36.5 more days (last dose on day #42 on 03/08/2025, 5:23pm) via PICC; home infusion therapy service with home IV antibiotics were arranged/coordinated by [facility] MsIan Bessie Alves. Patient reports that she will follow up with her new Infectious Disease DrIan Rao @ [facility] within 5-7 days of hospital discharge for initial/first Infectious Disease visit and will also undergo weekly CBC w/differential, creatinine level, ESR level, and CRP level testing while continuing the cefepime 2g IV q12 x 36.5 more days (last dose on day #42 on 03/08/2025, 10:30pm) and vancomycin 1g IV q12 x 36.5 more days (last dose on day #42 on 03/08/2025, 5:23pm) via PICC. Given that patient did not undergo bone biopsy or abscess fluid aspiration while in [facility] from admission date 01/25/2025 through discharge date 01/31/2025, patient was advised to undergo repeat MRI left foot with IV contrast after completing cefepime 2g IV q12 x 36.5 more days (last dose on day #42 on 03/08/2025, 10:30pm) and vancomycin 1g IV q12 x 36.5 more days (last dose on day #42 on 03/08/2025, 5:2 3pm) via PICC, to assess for resolution of acute left foot osteomyelitis @ left 1st tarso-metatarsal joint with 10mm rim-enhancing abscess abutting the lateral margin of the left peroneus longus tendon. To address #2, patient was started on empiric antibiotics as described in bullet #1 above, as the etiology of acute lactic acid elevation was most likely due to acute left foot cellulitis, if not acute left foot osteomyelitis and/or acute left foot abscess(es); in addition, patient was started on 1 liter of 0.9% NS @ 72 mL/hr (01/25/2025, 8:18pm), based on a delivery rate of 1 mL of 0.9% NS per kg of body weight per hour, and a body weight of 71.6 kg, as another etiology of acute lactic acid elevation was most likely due to acute dehydration in the infected state. Subsequently, acute lactic acid elevation RESOLVED with post- antibiotic treatment, post-IV fluid rehydration lactic acid #3 1.3 mmol/L (01/26/2025, 8:13am). Discharge Exam Constitutional General: Comfortable, cooperative, coherent. Wide awake and alert. Not confused, lethargic, or obtunded. Patient speaks in complete, fluent, and articulate sentences without pause, interruption, cough, or wheeze. HEENT: NC/AT. EOMI. PERRL. No nystagmus, gaze paresis, anisocoria, miosis, mydriasis, chemosis, hyphema, scleral injection, conjunctivitis, or pterygium. No otorrhea. No rhinorrhea. Neck: Supple, no stridor, bruit, or goiter. Jugular venous pressure 5cm above the sternal angle of Cash, which is typically 5 cm above the right atrium. Lymph: No anterior/posterior cervical lymphadenopathy, supraclavicular/infraclavicular lymphadenopathy, axilla/epitrochlear/inguinal lymphadenopathy. Chest: Symmetric rise and fall with respirations. Non-tender to palpation. Heart: RRR, S1 and S2. No S3 or S4 summation gallop. No tripartite friction rub. No murmur. Lungs: Clear to auscultation and percussion. No audible expiratory wheeze, egophony, pectoriloquy, increase in tactile fremitus, or flatness/dullness to percussion at the bases. Abd: Soft, non-tender, non-distended. Bowel sounds auscultated in all 4 quadrants. No rebound, guarding, Avilez's sign, or organomegaly. Ext: No clubbing, cyanosis, or edema. 2+ pedal pulses bilaterally. Skin: No decubitus ulcer or enanthem. MINIMAL purplish discoloration evanescent on discharge 01/31/2025 exam, compared to 01/28/2025, 01/27/2025, 01/26/2025, and admission 01/25/2025 exams) to the dorsum of left foot, sparing the left medial malleolus, the left lateral malleolus, and the left toes #1, #2, #3, #4, and #5 (which were edematous nonetheless). Dorsum of the left foot appears much LESS (on discharge 01/31/2025 exam, compared to 01/28/2025, 01/27/2025, 01/26/2025, and admission 01/25/2025 exams) warm, indurated, and mildly tender without crepitus, fluctuance, discharge (sanguineous, serous, suppurative), ulceration, malodor, or lymphangitic streaking. Sole of the left foot (sparing the calcaneal sole and mid-sole) and the plantar surface of the left hallux, the left 3rd, 4th, and 5th toes noted for discrete areas of desquamation. Neuro: No tremors, tics, or myoclonus. DTR+. Urology: No kowalski catheter. No purewick. No urethral discharge. Discharge Plan Discharge Items Patient Disposition: Home - Self-Care Reason For Visit: LEFT FOOT OSTEOMYELITIS WITH ABSCESSES Discharge Diagnosis: 1. Acute left foot osteomyelitis @ left 1st tarso-metatarsal joint with 10mm rim-enhancing abscess abutting the lateral margin of the left peroneus longus tendon. Condition on Discharge: Fair Activity: As commented below Activity Comment: Avoid weight-bearing on the left foot for the next 36 days. Lifting: Gradually increase as tolerated Bathing: No limitations Sexual Activity: When tolerated Exercise/Sports: Gradually increase as tolerated Driving/Machine Use: No limitations Non-emergency contact: Primary Care Provider Call non-emergency contact if: you have any medication questions Follow-up/Referrals: Macario Rodgers MD [Primary Care Provider] - 02/08/25 11:00 am Dinesh Rao MD [Physician] - (See Dr. Dinesh Rao within 5-7 days of hospital discharge.) Diet: Heart Healthy Addtl Attending Provider Instructions: See your PCP Dr. Macario Rodgers within 5-7 days of hospital discharge. See your new Infectious Disease Dr. Dinesh Rao within 5-7 days of hospital discharge for repeat/weekly CBC w/differential, ESR, CRP, and creatinine level testing. Pending Studies at Discharge: Yes Studies:: See your new Infectious Disease Dr. Dinesh Rao within 5-7 days of hospital discharge for repeat/weekly CBC w/differential, ESR, CRP, and creatinine level testing. Stand-Alone Forms: My [facility] [employer] Smoking Cessation Medications and DC Order Prescriptions: New vancomycin 1.25 gram recon soln 1.25 g IV Q12H cefepime 2 gram recon soln 2 g IV Q12H Continued celecoxib [Celebrex] 200 mg capsule 200 mg PO DAILY PRN (Reason: pain) Qty: 30 5RF Patient Comments: very rare cholecalciferol (vitamin D3) 1,250 mcg (50,000 unit) capsule 50,000 unit PO WK Qty: 12 3RF oxycodone 5 mg tablet 5 mg PO Q8H PRN (Reason: pain) Qty: 15 0RF mupirocin 2 % ointment 1 applic TOPICAL BID PRN (Reason: dryness in nose, mainly in winter) Qty: 22 0RF lorazepam 0.5 mg tablet 0.5 mg PO DAILY PRN (Reason: anxiety) Qty: 30 1RF Patient Comments: mainly when she flies Rx Instructions: Supervising physician Macario Villeda [facility] [id number] cyclobenzaprine 10 mg tablet 5 - 10 mg PO UD PRN (Reason: muscle spasms) mecobalamin (vitamin B12) See Rx Instructions .ROUTE .COMPLEX Rx Instructions: monthly injection, due on wednesday cholecalciferol (vitamin D3) [Vitamin D3] 25 mcg (1,000 unit) Tablet 75 mcg PO QPM Discontinued prednisone 10 mg tablet See Rx Instructions .ROUTE .COMPLEX Qty: 30 0RF Rx Instructions: Take 4 tablets (40mg) daily for 3 days, then take 3 tablets (30mg) for 3 days, then take 2 tablets (20mg) daily for 3 days, then take 1 tablet (10mg) daily for 3 days Discharge Orders: Discharge Order (Routine); Ordered 01/31/25 Ordered By: Rich Spain Admission Data Admit Date/Time: 01/25/25 16:59 Attending Provider: Rich Spain Admit Provider: Rich Spain Primary Care Provider: Macario Rodgers V. Other Providers: Bessie Stanton; Andrzej Harris; [facility]; Lenore Cabrales Hospital Stay Data Consultations 01/25/25 17:39 ED Decision to Admit Stat 01/26/25 09:59 Consult Podiatry Routine Procedures Performed Operation Date: 01/29/25 07:50 <No data on this case meets the specified criteria> Diagnostic Imagining Performed 01/25/25 19:24 MRI Foot [MR foot LT wo/w con] Stat Pending Results Patient Have Any Pending Studies at Discharge: Yes Discharge Instructions Given to Patient (Per Discharging Provider) See your PCP Dr. Macario Rodgers within 5-7 days of hospital discharge. See your new Infectious Disease Dr. Dinesh Rao within 5-7 days of hospital discharge for repeat/weekly CBC w/differential, ESR, CRP, and creatinine level testing. Total Time Total Time Spent Total Time Spent (In Minutes): 35 minutes. Of this time period, 19 minutes were spent in coordinating patient's discharge. Coding Level of Care Code 10969 INP/OBS DISCH >30 MIN Diagnoses Acute hematogenous osteomyelitis of left foot M86.072 Osteomyelitis type: acute hematogenous Elevated lactic acid level R79.89
== END 2025-01-31 15:45 | disposition home health service (06) | DRG 540 ==
LOC: ED 14:17 → 3N 16:59 → 3W 01-26 12:24